=== PATIENT | female | born 1995 | race Caucasian/White ===

== ENCOUNTER 2017-08-25 19:23 | Observation (INO) | payer MEDICAID ==
[~2017-08-25] VITALS: Ht 154.9 cm; Wt 68.0 kg
[2017-08-25 19:28] VITALS: BP 115/58; PULSE 103; RESP 16; TEMP 98.7; O2SAT 99
--- NOTE | 2017-08-25 19:52 | PD ---
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 She says she tested positive for home test and her last menstrual cycle was every 24th of this year. She started bleeding and passing products of conception 3 weeks ago. She says she saw a sac like structure coming out. She has had previous miscarriage and she knew that she was going to another miscarriage. Patient was A0. She is not from the area and just moved from [place] here. She never saw an OB for this or the miscarriage. She is here today because she has been bleeding still vaginally with cramps. Patient says that the last patchy change was soaked with blood and she had put that on 1 hour ago. Patient was slightly tachycardic in triage. She feels little lightheaded she said. She has been feeling some bloating and abdominal rigidity as well. [facility] Past Medical History Narrative Medical List of her past medical, surgical, social and family history is reviewed from the nursing note. ?: Unknown LMP: 05/09/17 Social History Tobacco Use: Yes Allergies-Medications (Allergen,Severity, Reaction): Coded Allergies: Penicillins (Verified Allergy, Severe, HIVES, 08/25/17) amoxicillin (Verified Allergy, Severe, Hives, 08/26/17) Comments List of her allergies reviewed from the nursing note. Reported Meds & Prescriptions Reported Meds & Active Scripts Active No Active Prescriptions or Reported Medications Narrative Medication List of her home medications reviewed from the nursing note Review of Systems Except as stated in HPI: all other systems reviewed are Neg Genitourinary: Positive: Vaginal Bleeding Physical Exam Narrative GENERAL: Awake, alert, moderate distress SKIN: Focused skin assessment warm/dry. HEAD: Atraumatic. Normocephalic. EYES: Pupils equal and round. No scleral icterus. No injection or drainage. ENT: No nasal bleeding or discharge. Mucous membranes pink and moist. NECK: Trachea midline. No JVD. CARDIOVASCULAR: Regular rate and rhythm. No murmur appreciated. RESPIRATORY: No accessory muscle use. Clear to auscultation. Breath sounds equal bilaterally. GASTROINTESTINAL: Abdomen soft, non-tender, nondistended. Hepatic and splenic margins not palpable. Abdominal distention with palpable uterine fundus MUSCULOSKELETAL: No obvious deformities. No clubbing. No cyanosis. No edema. NEUROLOGICAL: Awake and alert. No obvious cranial nerve deficits. Motor grossly within normal limits. Normal speech. PSYCHIATRIC: Appropriate mood and affect; insight and judgment normal. Data Data Last Documented VS Vital Signs Date Time Temp Pulse Resp B/P (MAP) Pulse Ox O2 Delivery O2 Flow Rate FiO2 08/25/17 22:15 08/25/17 21:50 92 16 99 Room Air 08/25/17 19:28 98.7 Orders Orders Beta Hcg (Quant/Titer) (08/25/17 19:52) Complete Blood Count With Diff (08/25/17 19:52) Basic Metabolic Panel (Bmp) (08/25/17 19:52) Type And Screen (08/25/17 19:52) Sodium Chlor 0.9% 1000 Ml Inj (Ns 1000 M (08/25/17 20:00) Prothrombin Time / Inr (Pt) (08/25/17 19:52) Act Partial Throm Time (Ptt) (08/25/17 19:52) Ed Poc Ultrasound (08/25/17 ) Ed Urine Pregnancytest Poc (08/25/17 20:09) Admit Order (Ed Use Only) (08/25/17 20:59) Urinalysis - C+S If Indicated (08/25/17 21:12) Ob/Psych Drug Screen, Urine (08/25/17 21:12) Ob Poc Ultrasound (08/25/17 ) Ob (2e) Additional Admit Info (08/25/17 23:38) Labs Laboratory Tests Test 08/25/17 20:08 08/25/17 21:17 White Blood Count 8.8 TH/MM3 Red Blood Count 3.51 MIL/MM3 Hemoglobin 11.2 GM/DL Hematocrit 33.0 % Mean Corpuscular Volume 94.2 FL Mean Corpuscular Hemoglobin 32.0 PG Mean Corpuscular Hemoglobin Concent 34.0 % Red Cell Distribution Width 11.8 % Platelet Count 281 TH/MM3 Mean Platelet Volume 9.3 FL Neutrophils (%) (Auto) 75.7 % Lymphocytes (%) (Auto) 15.2 % Monocytes (%) (Auto) 5.5 % Eosinophils (%) (Auto) 3.0 % Basophils (%) (Auto) 0.6 % Neutrophils # (Auto) 6.6 TH/MM3 Lymphocytes # (Auto) 1.3 TH/MM3 Monocytes # (Auto) 0.5 TH/MM3 Eosinophils # (Auto) 0.3 TH/MM3 Basophils # (Auto) 0.1 TH/MM3 CBC Comment DIFF FINAL Differential Comment Prothrombin Time 9.9 SEC Prothromb Time International Ratio 1.0 RATIO Activated Partial Thromboplast Time 22.8 SEC Blood Urea Nitrogen 10 MG/DL Creatinine 0.52 MG/DL Random Glucose 92 MG/DL Calcium Level 8.2 MG/DL Sodium Level 139 MEQ/L Potassium Level 3.6 MEQ/L Chloride Level 109 MEQ/L Carbon Dioxide Level 21.1 MEQ/L Anion Gap 9 MEQ/L Estimat Glomerular Filtration Rate 147 ML/MIN Human Chorionic Gonadotropin, Quant 39136 MIU/ML Urine Color YELLOW Urine Turbidity CLEAR Urine pH 5.5 Urine Specific [place] 1.025 Urine Protein NEG mg/dL Urine Glucose (UA) NEG mg/dL Urine Ketones NEG mg/dL Urine Occult Blood LARGE Urine Nitrite NEG Urine Bilirubin NEG Urine Urobilinogen 0.2 MG/DL Urine Leukocyte Esterase NEG Urine RBC 15-19 /hpf Urine WBC 0-2 /hpf Urine Squamous Epithelial Cells 0-5 /hpf Urine Bacteria OCC /hpf Microscopic Urinalysis Comment CULT NOT INDICATED Urine Opiates Screen NEG Urine Barbiturates Screen NEG Urine Amphetamines Screen NEG Urine Benzodiazepines Screen NEG Urine Cocaine Screen NEG Urine Cannabinoids Screen POS MDM Medical Decision Making Medical Screen Exam Complete: Yes Emergency Medical Condition: Yes Medical Record Reviewed: Yes Differential Diagnosis Incomplete , Narrative Course 8:35 PM bedside ultrasound was performed by me. Please refer to my procedure note. Based on the bedside ultrasound patient is 17 weeks and 1 days and based on the LMP it is 15 weeks and 4 days. Awaiting for the type and screen. Blood test results are back and within acceptable limits. Beta hCG is still pending. I will discuss the case with the OB hospitalist once I have the type and screen back. 9 PM I did a pelvic exam that showed the os to be parous but closed. There was fresh blood in the vaginal vault which was dabbed with long sponge x 2 after which constant trickling of blood from the cervical os was noticed. I discussed the case with Dr. Wallace who is on for OB hospitalist and the decision was to transfer her to the main hospital under his care for admission and observation. A formal ultrasound could not be done in the emergency room since patient is more than 12 weeks gestation. At this point further ultrasound would be deferred to OB. Procedures Procedure Narrative Emergency Department Pelvic ultrasound was performed with patient consent. The curvilinear probe was used in the transverse and sagittal views within the suprapubic region revealing single, live intrauterine . heart rate was 141 bpm. See this measures 17 weeks and 1 day by biparietal diameter. EKG Prior to Arrival: No Physician Communication Physician Communication Dr. Wallace Diagnosis Primary Impression: Second trimester Additional Impression: Vaginal bleeding before 22 weeks gestation Admitting Information Admitting Physician Requests: Admit Scripts No Active Prescriptions or Reported Meds Jonnie Antonio MD Aug 25, 2017 19:52
[2017-08-25] MEDS ORDERED: SODIUM CHLOR 0.9% 1000 ML INJ 1,000 ML IV ONE (20:00)
[2017-08-25 20:15] LABS: AUTOMATED NEUTROPHIL # 6.6 TH/MM3 (1.8-7.7); BASOPHIL # 0.1 TH/MM3 (0-0.2); BASOPHIL % 0.6 % (0.0-2.0); EOSINOPHIL # 0.3 TH/MM3 (0-0.4); HEMOGLOBIN 11.2 GM/DL (11.6-15.3); LYMPH % 15.2 % (9.0-44.0); LYMPHOCYTE # 1.3 TH/MM3 (1.0-4.8); MEAN CELL VOLUME 94.2 FL (80.0-100.0); MEAN PLATELET VOLUME 9.3 FL (7.0-11.0); MONO % 5.5 % (0.0-8.0); MONOCYTE # 0.5 TH/MM3 (0-0.9); NEUT % 75.7 % (16.0-70.0); PLATELET COUNT 281 TH/MM3 (150-450); RED BLOOD COUNT 3.51 MIL/MM3 (4.00-5.30); RED CELL DISTRIBUTION WIDTH 11.8 % (11.6-17.2); WHITE BLOOD COUNT 8.8 TH/MM3 (4.0-11.0)
[2017-08-25 20:27] LABS: BICARBONATE 21.1 MEQ/L (21.0-32.0); CALCIUM 8.2 MG/DL (8.5-10.1)
[2017-08-25 20:30] LABS: PROTHROMBIN TIME - PATIENT 9.9 SEC (9.8-11.6)
[2017-08-25 20:31] LABS: CREATININE 0.52 MG/DL (0.50-1.00)
[2017-08-25 21:22] LABS: BILIRUBIN, URINE NEG (NEG); BLOOD, URINE LARGE (NEG); GLUCOSE,URINE NEG (NEG); KETONE, URINE NEG (NEG); NITRITE,URINE NEG (NEG); PH, URINE 5.5 (5.0-8.5); URINE COLOR YELLOW (YELLW/STRAW); URINE LEUKOCYTE ESTERASE NEG (NEG)
[2017-08-25 21:27] LABS: BACTERIA, URINE OCC /hpf; RBC, URINE 15-19 /hpf (0-3); SQUAMOUS EPITHELIAL CELL URINE 0-5 /hpf (0-5); WBC, URINE 0-2 /hpf (0-5)
[2017-08-25 21:50] VITALS: BP 90/49; PULSE 92; RESP 16; O2SAT 99
[2017-08-25] MEDS ORDERED: ACETAMINOPHEN 325 MG TAB PO PRN (23:45)
[2017-08-25] MEDS ORDERED: SODIUM CHLORIDE 0.9% FLUSH 10 ML FLUSH IV FLUSH PRN (23:45)
[2017-08-25] MEDS ORDERED: ALUMINUM/MAGNESIUM/SIMETH 30 ML CUP PO PRN (23:45)
--- NOTE | 2017-08-25 23:53 | HHI.HP ---
HPI Chief Complaint Vaginal bleeding abdominal pain Date Seen: Aug 25, 2017 Time Seen: 23:43 Travel History International Travel<30 Days: No Contact w/Intl Traveler<30Days: No Known Affected Area: No History of Present Illness HPI 21-year-old black female A1 approximately 16 weeks by ultrasound danae who has no care and referred from [place] [facility] for bleeding in the second trimester, patient more than a week ago thought she just miscarried started bleeding is been bleeding ever since she went to the [place] [facility] because this began hurting as well and the input R they did a quick ultrasound that showed a fetus with heartbeat. They felt she needed to come here for evaluation she was sent to OB ED [place]. Here on OB ED bedside ultrasound done shows a 16 week 2 day single intrauterine with positive cardiac motion normal amniotic fluid anterior placenta grade 0 that shows in the lower uterine segment and right above the cervix a fairly large formed blood clot that is underneath a tail of placenta so would classified as a retroplacental clot/abruption/threatened spontaneous Weeks Gestation: 16 Para: 1 : 3 Last Menstrual Period: Aug 25, 2017 Miscarriage: 1 History Obstetric History Obstetric History 1 vaginal delivery 1 early loss Social History Alcohol Use: No Tobacco Use: Yes Substance Abuse: No Allergies-Medications (Allergen,Severity, Reaction): Coded Allergies: Penicillins (Verified Allergy, Severe, HIVES, 08/25/17) Home Meds No Active Prescriptions or Reported Meds Review of Systems General / Constitutional: No: Fever, Weight Gain, Chills, Other Eyes: No: Diploplia, Blurred Vision, Visual changes, Pain, Photophobia HENT: No: Headaches, Vertigo, Lightheadedness Cardiovascular: No: Irregular Rhythm, Chest Pain or Discomfort, Palpitations, Tachycardia, Syncope, Varicosities, Edema, Cyanosis Respiratory: No: Cough, Short of Breath, Other Gastrointestinal: Abdominal Pain, No: Nausea, Vomiting, Diarrhea Genitourinary: Vaginal Bleeding, No: Decreased Urinary Output, Oliguria Musculoskeletal: No: Limited ROM, Weakness, Cramping, Edema, Pain Skin: No Rash, No Itching, No Dryness, No Lumps, No Change in Pigmentation, No Change in Nails, No Alopecia, No Lesions Neurologic: No: Weakness, Dizziness, Syncope, Focal Abnormalities, Coordination Problem, Headache, Slurred Speech, Seizures Psychiatric: No: Depression, Suicidal Ideations, Homicidal Ideation Endocrine: No: Heat Intolerance, Cold Intolerance, Polydipsia, Polyuria, Other Physical Exam Vital Signs Date Time Temp Pulse Resp B/P (MAP) Pulse Ox O2 Delivery O2 Flow Rate FiO2 08/25/17 22:15 08/25/17 21:50 92 16 90/49 (63) 99 Room Air 08/25/17 19:28 98.7 103 16 115/58 (77) 99 Narrative GENERAL: Well-nourished, well-developed patient. SKIN: Warm and dry. HEAD: Normocephalic and atraumatic. EYES: No scleral icterus. No injection or drainage. ENT: No nasal drainage noted. Mucous membranes pink. Airway patent. NECK: Supple, trachea midline. No JVD. CARDIOVASCULAR: Regular rate and rhythm without murmurs, gallops, or rubs. RESPIRATORY: Breath sounds equal bilaterally. No accessory muscle use. BREASTS: Bilateral exam showed no masses , no retractions, no nipple discharge. ABDOMEN/GI: Abdomen soft, -tender, bowel sounds present, no rebound, no guarding Gravid to [16-] weeks size Fundal Height: [16-] GENITOURINARY: External Genitalia: intact and normal in appearance Speculum exam--small amount of dark blood in the vagina no active bleeding or red vaginal bleeding, blood seems to be oozing slowly from the cervix Uterus is approximately 17 weeks size by palpation with no adnexal masses is 1-2+ tender Cervix: [Posterior-] Dilatation: [-Closed at the internal os fingertip the external os] Effacement: [-Thick] Station: [-High] Membranes: [intact ] FHT's: 143 EXTREMITIES: No cyanosis or edema. BACK: Nontender without obvious deformity. No CVA tenderness. NEUROLOGICAL: Awake and alert. Motor and sensory grossly within normal limits. Five out of 5 muscle strength in all muscle groups. Normal speech. Caprini VTE Risk Assessment Caprini VTE Risk Assessment: No/Low Risk (score <= 1) Caprini Risk Assessment Model Point Value = 1 Point Value = 2 Point Value = 3 Point Value = 5 Age 41-60 Minor surgery BMI > 25 kg/m2 Swollen legs Varicose veins or History of unexplained or recurrent spontaneous Oral contraceptives or hormone replacement Sepsis (< 1 month) Serious lung disease, including pneumonia (< 1 month) Abnormal pulmonary function Acute myocardial infarction Congestive heart failure (< 1 month) History of inflammatory bowel disease Medical patient at bed rest Age 61-74 Arthroscopic surgery Major open surgery (> 45 min) Laparoscopic surgery (> 45 min) Malignancy Confined to bed (> 72 hours) Immobilizing plaster cast Central venous access Age >= 75 History of VTE Family history of VTE Factor V Leiden Prothrombin [id number] Lupus anticoagulant Anticardiolipin antibodies Elevated serum homocysteine Heparin-induced thrombocytopenia Other congenital or acquired thrombophilia Stroke (< 1 month) Elective arthroplasty Hip, pelvis, or leg fracture Acute spinal cord injury (< 1 month) Prophylaxis Regimen Total Risk Factor Score Risk Level Prophylaxis Regimen 0-1 Low Early ambulation 2 Moderate Order ONE of the following: *Sequential Compression Device (SCD) *Heparin 5000 units SQ BID 3-4 Higher Order ONE of the following medications: *Heparin 5000 units SQ TID *Enoxaparin/Lovenox 40 mg SQ daily (WT < 150 kg, CrCl > 30 mL/min) *Enoxaparin/Lovenox 30 mg SQ daily (WT < 150 kg, CrCl > 10-29 mL/min) *Enoxaparin/Lovenox 30 mg SQ BID (WT < 150 kg, CrCl > 30 mL/min) AND/OR *Sequential Compression Device (SCD) 5 or more Highest Order ONE of the following medications: *Heparin 5000 units SQ TID (Preferred with Epidurals) *Enoxaparin/Lovenox 40 mg SQ daily (WT < 150 kg, CrCl > 30 mL/min) *Enoxaparin/Lovenox 30 mg SQ daily (WT < 150 kg, CrCl > 10-29 mL/min) *Enoxaparin/Lovenox 30 mg SQ BID (WT < 150 kg, CrCl > 30 mL/min) AND *Sequential Compression Device (SCD) Data Data Orders Orders Beta Hcg (Quant/Titer) (08/25/17 19:52) Complete Blood Count With Diff (08/25/17 19:52) Basic Metabolic Panel (Bmp) (08/25/17 19:52) Type And Screen (08/25/17 19:52) Sodium Chlor 0.9% 1000 Ml Inj (Ns 1000 M (08/25/17 20:00) Prothrombin Time / Inr (Pt) (08/25/17 19:52) Act Partial Throm Time (Ptt) (08/25/17 19:52) Ed Poc Ultrasound (08/25/17 ) Ed Urine Pregnancytest Poc (08/25/17 20:09) Admit Order (Ed Use Only) (08/25/17 20:59) Urinalysis - C+S If Indicated (08/25/17 21:12) Ob/Psych Drug Screen, Urine (08/25/17 21:12) Ob Poc Ultrasound (08/25/17 ) Ob (2e) Additional Admit Info (08/25/17 23:38) Place In Observation (08/25/17 ) Diet Npo (08/26/17 Breakfast) Vital Signs (Adult) [id number] AWAKE (08/25/17 23:36) Heart CASTRO.QSHIFT (08/25/17 23:36) Activity Bed Rest With Brp (08/25/17 23:36) Acetaminophen (Tylenol) (08/25/17 23:45) [id number]-Iron Prenat (Stuartna (08/26/17 09:00) Docusate Sodium (Colace) (08/26/17 09:00) Al-Mag Hy-Si 40-40-4 Mg/Ml Liq (Mag-Al P (08/25/17 23:45) Sodium Chloride 0.9% Flush (Ns Flush) (08/26/17 09:00) Sodium Chloride 0.9% Flush (Ns Flush) (08/25/17 23:45) Ondansetron Odt (Zofran Odt) (08/25/17 23:45) Hold Clot (08/25/17 23:36) Consult Perinatology (08/25/17 ) Ferrous Sulfate (Ferrous Sulfate) (08/26/17 09:00) Lactated Ringer's 1000 Ml Inj (Lr 1000 M (08/25/17 23:36) Hiv Antibody Screen (08/25/17 23:36) Fentanyl Inj (Fentanyl Inj) (08/25/17 23:45) Labs Bedside ultrasound--single intrauterine 16 weeks 2 day size, positive cardiac motion and normal anatomy scan, normal amniotic fluid volume, baby in a transverse position, is an anterior grade 0 placenta that wraps around into the lower uterine segment and the end of this placenta seems to have been unroofed off of the lower uterine segment and cervix by large blood clot that is visible on ultrasound that is basically covering the internal os and is lying underneath the end of the placenta Laboratory Tests Test 08/25/17 20:08 08/25/17 21:17 White Blood Count 8.8 Red Blood Count 3.51 Hemoglobin 11.2 Hematocrit 33.0 Mean Corpuscular Volume 94.2 Mean Corpuscular Hemoglobin 32.0 Mean Corpuscular Hemoglobin Concent 34.0 Red Cell Distribution Width 11.8 Platelet Count 281 Mean Platelet Volume 9.3 Neutrophils (%) (Auto) 75.7 Lymphocytes (%) (Auto) 15.2 Monocytes (%) (Auto) 5.5 Eosinophils (%) (Auto) 3.0 Basophils (%) (Auto) 0.6 Neutrophils # (Auto) 6.6 Lymphocytes # (Auto) 1.3 Monocytes # (Auto) 0.5 Eosinophils # (Auto) 0.3 Basophils # (Auto) 0.1 CBC Comment DIFF FINAL Differential Comment Prothrombin Time 9.9 Prothromb Time International Ratio 1.0 Activated Partial Thromboplast Time 22.8 Blood Urea Nitrogen 10 Creatinine 0.52 Random Glucose 92 Calcium Level 8.2 Sodium Level 139 Potassium Level 3.6 Chloride Level 109 Carbon Dioxide Level 21.1 Anion Gap 9 Estimat Glomerular Filtration Rate 147 Human Chorionic Gonadotropin, Quant 37288 Urine Color YELLOW Urine Turbidity CLEAR Urine pH 5.5 Urine Specific [place] 1.025 Urine Protein NEG Urine Glucose (UA) NEG Urine Ketones NEG Urine Occult Blood LARGE Urine Nitrite NEG Urine Bilirubin NEG Urine Urobilinogen 0.2 Urine Leukocyte Esterase NEG Urine RBC 15-19 Urine WBC 0-2 Urine Squamous Epithelial Cells 0-5 Urine Bacteria OCC Microscopic Urinalysis Comment CULT NOT INDICATED Urine Opiates Screen NEG Urine Barbiturates Screen NEG Urine Amphetamines Screen NEG Urine Benzodiazepines Screen NEG Urine Cocaine Screen NEG Urine Cannabinoids Screen POS Assessment/Plan Assessment and Plan Impression--16 week intrauterine with second trimester hemorrhage pain related to a retroplacental clot/abruption seen on ultrasound, this would also qualify as a threatened spontaneous Plan-admit to antepartum service, check laboratory ,abruption lab, keep at bedrest watch to see if there is no obvious stabilization of the bleeding and the clot formation and I explained to the patient if it worsens in the placenta was further lifted off the lower uterine segment then it would quite likely miscarry this . If there is stabilization of bleeding and no further clot formation then this is possible that the clot may resolve and absorb on its own and could continue Oscar Wallace II, MD Aug 25, 2017 23:53
[2017-08-26] VITALS (11 sets, daily range): BP systolic 90–132; BP diastolic 43–92; PULSE 71–107; RESP 6–18; TEMP 97.7–98.1
[2017-08-26] MEDS: LACTATED RINGER'S 1000 ML INJ 1,000 ML IV SCH ×4 (00:18→23:36)
[2017-08-26 00:58] LABS: PROTHROMBIN TIME - PATIENT 9.8 SEC (9.8-11.6)
--- NOTE | 2017-08-26 08:28 | PD.OB.ANTE ---
Subjective Interval History Patient is a 21-year-old A1 at 16 weeks gestation presented with vaginal bleeding and abdominal pain. Ultrasound showed retroplacental clot versus abruption. Overnight patient changed 1 pad that was "full". She continues to have constant abdominal cramping that is unchanged from admission. Otherwise no gush of fluid. Objective Vital Signs Vital Signs Date Time Temp Pulse Resp B/P (MAP) Pulse Ox O2 Delivery O2 Flow Rate FiO2 08/25/17 22:15 08/25/17 21:50 92 16 90/49 (63) 99 Room Air 08/25/17 19:28 98.7 103 16 115/58 (77) 99 Intake & Output 08/26/17 08/26/17 07:00 19:00 Intake Total 1000 ml Balance 1000 ml Intake IV Total 1000 ml # Sanitary Pads 1 Pads Lab & Micro Results Test 08/25/17 20:08 08/25/17 21:17 08/25/17 23:50 08/26/17 00:37 White Blood Count 8.8 TH/MM3 Red Blood Count 3.51 MIL/MM3 Hemoglobin 11.2 GM/DL Hematocrit 33.0 % Mean Corpuscular Volume 94.2 FL Mean Corpuscular Hemoglobin 32.0 PG Mean Corpuscular Hemoglobin Concent 34.0 % Red Cell Distribution Width 11.8 % Platelet Count 281 TH/MM3 Mean Platelet Volume 9.3 FL Neutrophils (%) (Auto) 75.7 % Lymphocytes (%) (Auto) 15.2 % Monocytes (%) (Auto) 5.5 % Eosinophils (%) (Auto) 3.0 % Basophils (%) (Auto) 0.6 % Neutrophils # (Auto) 6.6 TH/MM3 Lymphocytes # (Auto) 1.3 TH/MM3 Monocytes # (Auto) 0.5 TH/MM3 Eosinophils # (Auto) 0.3 TH/MM3 Basophils # (Auto) 0.1 TH/MM3 CBC Comment DIFF FINAL Differential Comment Prothrombin Time 9.9 SEC 9.8 SEC Prothromb Time International Ratio 1.0 RATIO 1.0 RATIO Activated Partial Thromboplast Time 22.8 SEC 24.4 SEC Blood Urea Nitrogen 10 MG/DL Creatinine 0.52 MG/DL Random Glucose 92 MG/DL Calcium Level 8.2 MG/DL Sodium Level 139 MEQ/L Potassium Level 3.6 MEQ/L Chloride Level 109 MEQ/L Carbon Dioxide Level 21.1 MEQ/L Anion Gap 9 MEQ/L Estimat Glomerular Filtration Rate 147 ML/MIN Human Chorionic Gonadotropin, Quant 66367 MIU/ML Urine Color YELLOW Urine Turbidity CLEAR Urine pH 5.5 Urine Specific [place] 1.025 Urine Protein NEG mg/dL Urine Glucose (UA) NEG mg/dL Urine Ketones NEG mg/dL Urine Occult Blood LARGE Urine Nitrite NEG Urine Bilirubin NEG Urine Urobilinogen 0.2 MG/DL Urine Leukocyte Esterase NEG Urine RBC 15-19 /hpf Urine WBC 0-2 /hpf Urine Squamous Epithelial Cells 0-5 /hpf Urine Bacteria OCC /hpf Microscopic Urinalysis Comment CULT NOT INDICATED Urine Opiates Screen NEG Urine Barbiturates Screen NEG Urine Amphetamines Screen NEG Urine Benzodiazepines Screen NEG Urine Cocaine Screen NEG Urine Cannabinoids Screen POS HIV (1&2) Ab and P24 Ag, 4th Gener NONREACTIVE Physical Exam GENERAL: Well-nourished, well-developed patient. CARDIOVASCULAR: Regular rate and rhythm without murmurs, gallops, or rubs. RESPIRATORY: Breath sounds equal bilaterally. No accessory muscle use. ABDOMEN/GI: Abdomen soft, non-tender. Fundus: Consistent with 16 weeks gestation EXTREMITIES: No cyanosis or edema, non-tender, without signs of DVT. Assessment and Plan Assessment and Plan Impression--16 week intrauterine with second trimester hemorrhage pain related to a retroplacental clot/abruption seen on ultrasound, this would also qualify as a threatened spontaneous . H&H at 11.2/33.0 on admission Plan admitted to antepartum service overnight and watched for stabilization of bleeding and clot formation. Patient understands that if bleeding in the placenta is further lifted off the lower uterine segment that it could possibly lead to miscarried . Stabilization and the bleeding with no further clot formation within the clot may resolve/absorb in could continue. Plan for ultrasound this morning and MFM consult. Daniel Stauffer MD R1 Aug 26, 2017 08:28
[2017-08-26] MEDS: DOCUSATE SODIUM 100 MG CAP PO SCH (08:52)
[2017-08-26] MEDS: MULTIVIT/MIN/PREN/FOL AC/IRON PRENATAL TAB PO SCH (08:52)
[2017-08-26] MEDS: FERROUS SULFATE 325 MG (65 MG ELEMENTAL IRON) TAB PO SCH ×2 (08:53→21:21)
[2017-08-26] MEDS: SODIUM CHLORIDE 0.9% FLUSH 10 ML FLUSH IV FLUSH SCH ×2 (09:00→21:00)
[2017-08-26] MEDS: oxyCODONE/ACETAMINOPHEN 5 MG/325 MG TAB PO PRN ×2 (16:06→21:21)
[2017-08-26] MEDS ORDERED: SIMETHICONE 125 MG CHEWABLE TAB PO PRN (16:15)
[2017-08-26 17:13] LABS: BASOPHIL # 0.1 TH/MM3 (0-0.2); BASOPHIL % 0.6 % (0.0-2.0); EOSINOPHIL # 0.2 TH/MM3 (0-0.4); EOSINOPHIL % 2.4 % (0.0-4.0); HEMATOCRIT 31.3 % (35.0-46.0); HEMOGLOBIN 11.3 GM/DL (11.6-15.3); LYMPH % 14.5 % (9.0-44.0); LYMPHOCYTE # 1.3 TH/MM3 (1.0-4.8); MEAN CELL VOLUME 91.5 FL (80.0-100.0); MONO % 6.2 % (0.0-8.0); MONOCYTE # 0.6 TH/MM3 (0-0.9); NEUT % 76.3 % (16.0-70.0); PLATELET COUNT 253 TH/MM3 (150-450); RED BLOOD COUNT 3.42 MIL/MM3 (4.00-5.30); RED CELL DISTRIBUTION WIDTH 12.6 % (11.6-17.2); WHITE BLOOD COUNT 9.2 TH/MM3 (4.0-11.0)
[2017-08-26 17:17] LABS: MEAN CORPUSCULAR HGB CONC 36.1 % (32.0-36.0)
[2017-08-26] MEDS: ONDANSETRON ODT 4 MG TAB PO PRN (21:55)
[2017-08-27] VITALS (16 sets, daily range): BP systolic 85–118; BP diastolic 39–63; PULSE 62–82; RESP 16–19; TEMP 98–98.4
[2017-08-27] MEDS: oxyCODONE/ACETAMINOPHEN 5 MG/325 MG TAB PO PRN ×2 (05:32→13:14)
[2017-08-27] MEDS: LACTATED RINGER'S 1000 ML INJ 1,000 ML IV SCH ×3 (08:01→23:36)
[2017-08-27] MEDS: FERROUS SULFATE 325 MG (65 MG ELEMENTAL IRON) TAB PO SCH ×2 (08:23→21:00)
--- NOTE | 2017-08-27 08:46 | PD.OB.ANTE ---
Subjective Interval History Overnight patient states that her bleeding increase from occasional spotting to a more consistent flow. States she did not soak through multiple pads. She also continues to feel pelvic pressure/lower abdominal pain that continues to be a continual cramp-like sensation. She also endorses a headache since admission. She states she has not passed gas or had a bowel movement since admission. Objective Vital Signs Vital Signs Date Time Temp Pulse Resp B/P (MAP) Pulse Ox O2 Delivery O2 Flow Rate FiO2 08/27/17 07:36 17 08/27/17 05:28 98.0 08/27/17 05:28 18 08/27/17 05:18 69 95/48 (64) 08/27/17 05:14 68 86/39 (55) 08/27/17 05:13 71 85/43 (57) 08/27/17 00:13 18 08/27/17 00:06 98.1 18 08/27/17 00:04 62 96/47 (63) 08/26/17 21:15 71 96/48 (64) 08/26/17 19:45 71 94/46 (62) 08/26/17 19:25 98.0 107 18 132/92 (105) 08/26/17 16:00 6 08/26/17 16:00 16 08/26/17 15:48 97.7 08/26/17 15:34 77 94/43 (60) 08/26/17 12:29 71 90/46 (61) 08/26/17 12:28 98.1 08/26/17 08:42 16 08/26/17 08:41 74 91/45 (60) Lab & Micro Results Test 08/26/17 16:58 White Blood Count 9.2 TH/MM3 Red Blood Count 3.42 MIL/MM3 Hemoglobin 11.3 GM/DL Hematocrit 31.3 % Mean Corpuscular Volume 91.5 FL Mean Corpuscular Hemoglobin 33.0 PG Mean Corpuscular Hemoglobin Concent 36.1 % Red Cell Distribution Width 12.6 % Platelet Count 253 TH/MM3 Mean Platelet Volume 9.0 FL Neutrophils (%) (Auto) 76.3 % Lymphocytes (%) (Auto) 14.5 % Monocytes (%) (Auto) 6.2 % Eosinophils (%) (Auto) 2.4 % Basophils (%) (Auto) 0.6 % Neutrophils # (Auto) 7.0 TH/MM3 Lymphocytes # (Auto) 1.3 TH/MM3 Monocytes # (Auto) 0.6 TH/MM3 Eosinophils # (Auto) 0.2 TH/MM3 Basophils # (Auto) 0.1 TH/MM3 CBC Comment DIFF FINAL Differential Comment Physical Exam GENERAL: Well-nourished, well-developed patient in discomfort. CARDIOVASCULAR: Regular rate and rhythm without murmurs, gallops, or rubs. RESPIRATORY: Breath sounds equal bilaterally. No accessory muscle use. ABDOMEN/GI: Abdomen soft, non-tender, nondistended with hyperactive bowel sounds. Fundus: 16 EXTREMITIES: No cyanosis or edema, non-tender, without signs of DVT. Assessment and Plan Assessment and Plan Impression--16 week intrauterine with second trimester hemorrhage pain related to a retroplacental clot/abruption seen on ultrasound, this would also qualify as a threatened spontaneous . H&H stable with a hemoglobin of 11 x2. Admitted to antepartum service and watched for stabilization of bleeding and clot formation. Patient understands that if bleeding in the placenta is further lifted off the lower uterine segment that it could possibly lead to miscarried . Stabilization and the bleeding with no further clot formation within the clot may resolve/absorb in could continue. -MFM saw patient on 08/26, recommendations are to continue monitoring -Repeat ultrasound on 08/26 showed no significant changes to the retroplacental clot. Heartbeat the fetus still visualized -On 08/27 patient reporting increased bleeding, repeating ultrasound this morning -Repeating CBC as bleeding has increased -Fioricet every 8 hours as needed for headache Daniel Stauffer MD R1 Aug 27, 2017 08:46
[2017-08-27] MEDS: SODIUM CHLORIDE 0.9% FLUSH 10 ML FLUSH IV FLUSH SCH ×2 (09:00→21:00)
[2017-08-27] MEDS: MULTIVIT/MIN/PREN/FOL AC/IRON PRENATAL TAB PO SCH (09:00)
[2017-08-27] MEDS: DOCUSATE SODIUM 100 MG CAP PO SCH (10:09)
[2017-08-27] MEDS: ACETAMIN 325 MG/BUTALBITAL 50 MG/CAFFEINE 40 MG TAB PO PRN ×2 (10:10→18:41)
[2017-08-27 10:38] LABS: HEMATOCRIT 32.4 % (35.0-46.0); HEMOGLOBIN 11.3 GM/DL (11.6-15.3); MEAN CELL VOLUME 92.3 FL (80.0-100.0); MEAN CORPUSCULAR HEMOGLOBIN 32.2 PG (27.0-34.0); MEAN CORPUSCULAR HGB CONC 34.9 % (32.0-36.0); MEAN PLATELET VOLUME 9.1 FL (7.0-11.0); PLATELET COUNT 259 TH/MM3 (150-450); RED BLOOD COUNT 3.51 MIL/MM3 (4.00-5.30); RED CELL DISTRIBUTION WIDTH 12.5 % (11.6-17.2); WHITE BLOOD COUNT 7.1 TH/MM3 (4.0-11.0)
[2017-08-27] MEDS: ONDANSETRON ODT 4 MG TAB PO PRN (13:14)
[2017-08-28] VITALS (9 sets, daily range): BP systolic 89–93; BP diastolic 37–53; PULSE 70–150; RESP 16–18; TEMP 98.2–98.5
[2017-08-28] MEDS: ACETAMIN 325 MG/BUTALBITAL 50 MG/CAFFEINE 40 MG TAB PO PRN (01:44)
[2017-08-28] MEDS: LACTATED RINGER'S 1000 ML INJ 1,000 ML IV SCH (07:36)
--- NOTE | 2017-08-28 08:27 | PD.OB.ANTE ---
Subjective Interval History Patient complains of headache and abdominal pain but has been having pain since she has been in the hospital. The headache and abdominal pain are well controlled with Percocet. She is tired of being in the hospital and would like to go home today. Antepartum ROS: Denies: New complaints Objective Vital Signs Vital Signs Date Time Temp Pulse Resp B/P (MAP) Pulse Ox O2 Delivery O2 Flow Rate FiO2 08/28/17 08:20 18 08/28/17 08:20 98.2 08/28/17 08:14 70 89/50 (63) 08/28/17 08:11 150 93/53 (66) 08/28/17 04:00 18 08/28/17 01:36 18 08/28/17 01:36 98.5 08/28/17 01:31 72 93/37 (55) 08/28/17 00:44 16 08/27/17 23:08 18 08/27/17 22:50 16 08/27/17 21:16 18 08/27/17 21:00 18 08/27/17 20:56 99/40 (59) 08/27/17 20:56 64 08/27/17 20:21 98.4 08/27/17 19:00 18 08/27/17 15:55 17 08/27/17 13:16 70 99/51 (67) 08/27/17 09:37 19 08/27/17 09:16 82 118/63 (81) Lab & Micro Results Test 08/27/17 10:25 White Blood Count 7.1 TH/MM3 Red Blood Count 3.51 MIL/MM3 Hemoglobin 11.3 GM/DL Hematocrit 32.4 % Mean Corpuscular Volume 92.3 FL Mean Corpuscular Hemoglobin 32.2 PG Mean Corpuscular Hemoglobin Concent 34.9 % Red Cell Distribution Width 12.5 % Platelet Count 259 TH/MM3 Mean Platelet Volume 9.1 FL Physical Exam GENERAL: Well-nourished, well-developed patient. CARDIOVASCULAR: Regular rate and rhythm without murmurs, gallops, or rubs. RESPIRATORY: Breath sounds equal bilaterally. No accessory muscle use. ABDOMEN/GI: Abdomen soft, non-tender. Fundus: gravid GENITOURINARY: External Genitalia: intact and normal in appearance FHT's: 142 overnight EXTREMITIES: No cyanosis or edema, non-tender, without signs of DVT. Assessment and Plan Assessment and Plan Impression--16 week intrauterine with second trimester hemorrhage pain related to a retroplacental clot/abruption seen on ultrasound, this would also qualify as a threatened spontaneous . H&H stable with a hemoglobin of 11 x 3. Admitted to antepartum service and watched for stabilization of bleeding and clot formation. Patient understands that if bleeding in the placenta is further lifted off the lower uterine segment, it could possibly lead to miscarried . Stabilization of the bleeding with no further clot formation within the clot may resolve/absorb in could continue. -MFM saw patient on 08/26, recommendations are to continue monitoring -Repeat ultrasound on 08/26 showed no significant changes to the retroplacental clot. Heartbeat still visualized on the fetus -On 08/27 patient reporting increased bleeding, ultrasound was repeated * US showed a subchorionic hematoma located directly over the internal os measuring 7.1 x 3.2 x 5.9 cm, slightly smaller than on 07/26 -Fioricet every 8 hours as needed for headache -Percocet every 4 hours as needed for pain -Milk of Magnesia prn constipation Discussed with Dr. Aaliyah Rodriges,Azalia PATTERSNO R2 Aug 28, 2017 08:27
[2017-08-28] MEDS ORDERED: MAGNESIUM HYDROXIDE SUSP 30 ML CUP PO PRN (08:30)
[2017-08-28] MEDS: SODIUM CHLORIDE 0.9% FLUSH 10 ML FLUSH IV FLUSH SCH (08:53)
[2017-08-28] MEDS: MULTIVIT/MIN/PREN/FOL AC/IRON PRENATAL TAB PO SCH (08:54)
[2017-08-28] MEDS: FERROUS SULFATE 325 MG (65 MG ELEMENTAL IRON) TAB PO SCH (08:54)
[2017-08-28] MEDS: DOCUSATE SODIUM 100 MG CAP PO SCH (08:54)
[2017-08-28] MEDS ORDERED: COLA100C5 PO (13:20)
[2017-08-28] MEDS ORDERED: FERR325T20 PO (13:20)
[2017-08-28] MEDS ORDERED: NON-500T10 PO (13:20)
--- NOTE | 2017-08-28 13:20 | HHI.DCPOC ---
Discharge Care Plan Diagnosis: (1) Placenta previa (2) Second trimester (3) Vaginal bleeding before 22 weeks gestation Report Symptoms to Your Doctor -Temperature above 100.5 degrees -Redness, of incision or excessive or foul smelling drainage -Unusual pain or calf pain -Increased vaginal bleeding -Painful or difficulty urinating -Feelings of extreme sadness or anxiety after 2 weeks Goals to Promote Your Health * To prevent worsening of your condition and complications * To maintain your health at the optimal level Directions to Meet Your Goals Take your medications as prescribed Follow your dietary instruction Follow activity as directed Ensure plenty of rest for recovery Drink fluids for hydration Keep your appointments as scheduled Take your immunizations and boosters as scheduled If your symptoms worsen call your PCP, if no PCP go to Urgent Care Center or Emergency Room Smoking is Dangerous to Your Health. Avoid second hand smoke Call the 24-hour crisis hotline for domestic abuse at Daniel Stauffer MD R1 Aug 28, 2017 13:20
[2017-08-28] MEDS: oxyCODONE/ACETAMINOPHEN 5 MG/325 MG TAB PO PRN (14:10)
[2017-08-29] MEDS ORDERED: PEDI1TAB7 PO (20:23)
== END 2017-08-28 15:03 | disposition home or self-care (01) ==
LOC: PHED 19:23 → UNDOADMIN 21:01 → PHEDA 21:01 → H2EA 23:39
PROVIDERS: ADMIT Obstetrics & Gynecology Maternal & Fetal Medicine; ATTEND Obstetrics & Gynecology Maternal & Fetal Medicine
DX: O20.0 Threatened abortion (principal); O20.8 Other hemorrhage in early pregnancy; O45.92 Premature separation of placenta, unspecified, second trimester; Z3A.16 16 weeks gestation of pregnancy; R51 Headache; R10.9 Unspecified abdominal pain; R00.0 Tachycardia, unspecified; R42 Dizziness and giddiness; R14.0 Abdominal distension (gaseous); F17.210 Nicotine dependence, cigarettes, uncomplicated; F12.90 Cannabis use, unspecified, uncomplicated; Z79.899 Other long term (current) drug therapy
CPT/HCPCS: 36415; 76805; 76815; 80048; 80307; 81001; 84702; 84703; 85025; 85027; 85610; 85730; 86850; 86900; 86901; 87389; 96361; 96374; 96376; 99285; G0378; G0481; J3010; J7030; J7120; G0475

== ENCOUNTER 2017-08-29 19:21 | Inpatient (IN) | payer MEDICAID ==
[~2017-08-29] VITALS: Ht 154.9 cm; Wt 65.7 kg
[~2017-08-29 19:21] MED LIST: COLA100C5 PO; FERR325T20 PO; NON-500T10 PO
--- NOTE | 2017-08-29 19:58 | PD ---
HPI Chief Complaint Vaginal bleeding Travel History International Travel<30 Days: No Contact w/Intl Traveler<30Days: No Known Affected Area: No History of Present Illness HPI 21-year-old , IUP at 16.6 care complicated by complete placenta previa with vaginal bleeding and recent admission/discharge, recovering addict The patient presents reporting she was discharged yesterday. She reports she has been bleeding since she was discharged yesterday. She reports her bleeding increased this morning and she reports she was saturating pads over the period of hours, not every hour. She reports that she has been passing some clots. She reports that her bleeding has decreased since she decided to come to the hospital. She denies any recent intercourse. She reports she has been on bed rest with bathroom privileges. She reports she is having some cramping. She denies any leaking of fluid. She does not yet feel movements. She reports that she has a headache but no other complaints at this time. 08/25: Admitted to antepartum service and watched for stabilization of bleeding and clot formation at 16 weeks with second trimester hemorrhage and pain related to a retroplacental clot/abruption seen on ultrasound. At that time, the patient expressed understanding that if bleeding in the placenta is further lifted off the lower uterine segment that it could possibly lead to miscarried . Stabilization and the bleeding with no further clot formation within the clot may resolve/absorb in could continue. 08/26: HAYESM saw patient, recommendation were to continue monitoring 08/26: Repeat ultrasound showed no significant changes to the retroplacental clot. Heartbeat the fetus still visualized 08/27: Patient reporting increased bleeding, repeated ultrasound with stabilization of clot which was slightly smaller than prior, Hgb remained stable , patient continued cramping throughout hospital stay. US showed a subchorionic hematoma located directly over the internal os measuring 7.1 x 3.2 x 5.9 cm, slightly smaller than on 07/26 08/28: Patient was discharged home Weeks Gestation: 16 Para: 1 : 3 Miscarriage: 1 History Past Medical History Narrative Medical History of addiction Possible Anxiety Obstetric History Obstetric History 1 SAB 1 Past Surgical History Surgical History: No Previous Surgery Family History Narrative Family History DM Social History Alcohol Use: No Tobacco Use: No Substance Abuse: No Allergies-Medications (Allergen,Severity, Reaction): Coded Allergies: Penicillins (Verified Allergy, Severe, HIVES, 08/29/17) amoxicillin (Verified Allergy, Severe, Hives, 08/29/17) Home Meds Active Scripts Acetaminophen (Non-Aspirin Extra Strength) 500 Mg Tab, 1000 MG PO Q6HR, #80 TAB 0 Refills Prov:Daniel Stauffer MD 08/28/17 Docusate Sodium (Colace) 100 Mg Capsule, 100 MG PO BID for Prevent Constipation , #60 CAP 0 Refills Prov:Daniel Stauffer MD 08/28/17 Ferrous Sulfate (Ferosul) 325 Mg (65 Mg Iron) Tablet, 325 MG PO BID, #60 TAB Prov:Daniel Stauffer MD 08/28/17 Reported Medications Pediatric Multivitamin No.101 (Gummy) 1 Each Tab.chew, 2 TAB PO 08/29/17 Review of Systems Except as stated in HPI: all other systems reviewed are Neg Physical Exam Narrative GENERAL: Well-nourished, well-developed patient. SKIN: Warm and dry. HEAD: Normocephalic and atraumatic. EYES: No scleral icterus. No injection or drainage. ENT: No nasal drainage noted. Mucous membranes pink. Airway patent. NECK: Supple, trachea midline. No JVD. CARDIOVASCULAR: Regular rate and rhythm without murmurs, gallops, or rubs. RESPIRATORY: Breath sounds equal bilaterally. No accessory muscle use. BREASTS: Deferred ABDOMEN/GI: Abdomen soft, non-tender, bowel sounds present, no rebound, no guarding Gravid GENITOURINARY: External Genitalia: intact and normal in appearance. Normal BUS. Her sanitary napkin was inspected which she changed prior to coming and there is some blood on the pad but less than 15% saturated. Normal BUS. Speculum examination was performed revealed a closed appearing cervical loss with a small amount of dark blood in the vaginal vault but with no active bleeding and no significant accumulation of blood in vault during examination. A vaginal examination was deferred. FHT's: heart tones were in the 150s, documented 152. EXTREMITIES: No cyanosis or edema. BACK: Nontender without obvious deformity. NEUROLOGICAL/musculoskeletal: Awake and alert. Motor and sensory grossly within normal limits. Grossly normal muscle strength in all muscle groups. Normal speech. Grossly normal range of motion, gait not assessed Psychiatric: Grossly normal memory and affect Data Data Orders Orders Ob (2e) Additional Admit Info (08/29/17 19:52) Admit To Inpatient (08/29/17 ) Diet Npo (08/30/17 Breakfast) Vital Signs (Adult) [id number] AWAKE (08/29/17 19:50) Heart CASTRO.QSHIFT (08/29/17 19:50) Activity Bed Rest With Brp (08/29/17 19:50) Complete Blood Count With Diff (08/29/17 19:50) Basic Metabolic Panel (Bmp) (08/29/17 19:50) Hepatic Functional Panel (08/29/17 19:50) Urinalysis - C+S If Indicated (08/29/17 19:50) Acetaminophen (Tylenol) (08/29/17 20:00) Jtuqkylb-Gkn-Aaems-Iron Prenat (Stuartna (08/30/17 09:00) Docusate Sodium (Colace) (08/30/17 09:00) Al-Mag Hy-Si 40-40-4 Mg/Ml Liq (Mag-Al P (08/29/17 20:00) Sodium Chloride 0.9% Flush (Ns Flush) (08/29/17 21:00) Sodium Chloride 0.9% Flush (Ns Flush) (08/29/17 20:00) Zolpidem (Ambien) (08/29/17 20:00) Ondansetron Odt (Zofran Odt) (08/29/17 20:00) Ferrous Sulfate (Ferrous Sulfate) (08/29/17 21:00) Inpatient Certification (08/29/17 ) Scd Bilateral/Knee High CASTRO.QSHIFT (08/29/17 19:52) Oxycodone-Acetamin 5-325 Mg (Percocet (08/29/17 20:00) Oxycodone-Acetamin 5-325 Mg (Percocet (08/29/17 20:00) Hydroxyzine Pamoate (Vistaril) (08/29/17 20:00) Lorazepam Inj (Ativan Inj) (08/29/17 20:00) MDM Narrative Course / MDM Assessment/Plan: 1. IUP at 16.6 2. Complete placenta previa with partial abruption and vaginal bleeding: The patient was previously admitted for a complete placenta previa with an abruption noted on previous ultrasound report. The 08/27 US showed a subchorionic hematoma located directly over the internal os measuring 7.1 x 3.2 x 5.9 cm, slightly smaller than on 07/26. The patient was discharged home yesterday on bedrest. However she reports she has continued to have bleeding which increased today so will be admitted for further observation and evaluation. Physical examination does not reveal apparent active bleeding, but will admit and monitor closely, repeat CBC now and in am, obtain coag panel, type and cross for 2 units should transfusion be indicated. Will consider repeat US in 1-2 days. The patient was counseled that should she bleed heavily and not stop she may require delivery despite the fetus a gestational age that is not viable. We discussed the possible need for surgery should it be indicated with a possible D&C/D&E, or any other indicated procedure. Discussed surgical risks should it be indicated including but not limited to pain, infection, bleeding, need for a blood transfusion, injury to other organs like the bladder/bowels/nerves/vessels, uterine perforation, uterine scarring that may interfere with subsequent pregnancies, unlikely but possible L/S or exploratory laparotomy should they be warranted. Discussed that should she deliver at this gestational age the fetus is not viable and would not survive. The patient would prefer to avoid surgery if possible. We discussed the poor prognosis and likelihood of the progressing to a viable gestational age. We will manage conservatively and monitor closely. 3. History of addiction: The mother reports that the patient is a recovering addict. 4. Headache: Patient was on Fioricet during her previous admission for headache 5. heart tones in the 150s 6. Mother reports patient has a history of anxiety: will provide medication to assist with anxiety Aurora Yang MD Aug 29, 2017 19:58
[2017-08-29] MEDS ORDERED: SODIUM CHLORIDE 0.9% FLUSH 10 ML FLUSH IV FLUSH PRN (20:00)
[2017-08-29] MEDS ORDERED: ALUMINUM/MAGNESIUM/SIMETH 30 ML CUP PO PRN (20:00)
[2017-08-29] MEDS ORDERED: LORazepam 2 MG/ML VIAL IM PRN (20:00)
[2017-08-29] MEDS ORDERED: ZOLPIDEM TARTRATE 5 MG TAB PO PRN (20:00)
[2017-08-29] MEDS ORDERED: ACETAMINOPHEN 325 MG TAB PO PRN (20:00)
[2017-08-29] MEDS ORDERED: oxyCODONE/ACETAMINOPHEN 5 MG/325 MG TAB PO PRN (20:00)
[2017-08-29] MEDS ORDERED: LACTATED RINGER'S 1000 ML INJ 1,000 ML IV ONE (20:15)
[2017-08-29] MEDS ORDERED: PEDI1TAB7 PO (20:23)
[2017-08-29] MEDS ORDERED: ACETAMIN 325 MG/BUTALBITAL 50 MG/CAFFEINE 40 MG TAB PO PRN ×2 (20:45)
[2017-08-29 20:46] LABS: BILIRUBIN, URINE NEG (NEG); BLOOD, URINE LARGE (NEG); GLUCOSE,URINE NEG (NEG); KETONE, URINE NEG (NEG); MUCUS URINE FEW /lpf (OCC); NITRITE,URINE NEG (NEG); SQUAMOUS EPITHELIAL CELL URINE <1 /hpf (0-5); URINE COLOR YELLOW (YELLW/STRAW); URINE LEUKOCYTE ESTERASE NEG (NEG)
[2017-08-29] MEDS: LACTATED RINGER'S 1000 ML INJ 1,000 ML IV SCH (20:48)
[2017-08-29] MEDS: ONDANSETRON ODT 4 MG TAB PO PRN (20:48)
[2017-08-29 20:51] LABS: AUTOMATED NEUTROPHIL # 7.9 TH/MM3 (1.8-7.7); BASOPHIL # 0.1 TH/MM3 (0-0.2); BASOPHIL % 0.5 % (0.0-2.0); EOSINOPHIL # 0.2 TH/MM3 (0-0.4); EOSINOPHIL % 1.9 % (0.0-4.0); HEMATOCRIT 32.2 % (35.0-46.0); HEMOGLOBIN 11.5 GM/DL (11.6-15.3); LYMPH % 11.1 % (9.0-44.0); LYMPHOCYTE # 1.1 TH/MM3 (1.0-4.8); MEAN CELL VOLUME 91.6 FL (80.0-100.0); MEAN CORPUSCULAR HEMOGLOBIN 32.6 PG (27.0-34.0); MEAN CORPUSCULAR HGB CONC 35.6 % (32.0-36.0); MEAN PLATELET VOLUME 9.5 FL (7.0-11.0); MONO % 7.2 % (0.0-8.0); MONOCYTE # 0.7 TH/MM3 (0-0.9); NEUT % 79.3 % (16.0-70.0); PLATELET COUNT 294 TH/MM3 (150-450); RED BLOOD COUNT 3.52 MIL/MM3 (4.00-5.30); RED CELL DISTRIBUTION WIDTH 12.4 % (11.6-17.2); WHITE BLOOD COUNT 9.9 TH/MM3 (4.0-11.0)
[2017-08-29 21:00] VITALS: RESP 18; TEMP 98.9
[2017-08-29] MEDS: FERROUS SULFATE 325 MG (65 MG ELEMENTAL IRON) TAB PO SCH (21:00)
[2017-08-29] MEDS: SODIUM CHLORIDE 0.9% FLUSH 10 ML FLUSH IV FLUSH SCH (21:00)
[2017-08-29 21:04] LABS: ALBUMIN 3.2 GM/DL (3.4-5.0); AST (GOT) 24 U/L (15-37); BICARBONATE 18.3 MEQ/L (21.0-32.0); BLOOD UREA NITROGEN 12 MG/DL (7-18); CALCIUM 8.5 MG/DL (8.5-10.1); CHLORIDE 105 MEQ/L (98-107); CREATININE 0.57 MG/DL (0.50-1.00); DIRECT BILIRUBIN ADULT LESS THAN 0.1 MG/DL (0.0-0.2); GLOMERULAR FILTRATION RATE 133 ML/MIN (>89); GLUCOSE,RANDOM 84 MG/DL (74-106); SODIUM (NA) 136 MEQ/L (136-145)
[2017-08-29 21:05] LABS: ALT (GPT) 24 U/L (10-53)
[2017-08-29 21:07] LABS: ALKALINE PHOSPHATASE 57 U/L (45-117); INDIRECT BILIRUBIN 0.1 MG/DL (0.0-0.8); TOTAL BILIRUBIN ADULT 0.2 MG/DL (0.2-1.0); TOTAL PROTEIN 6.5 GM/DL (6.4-8.2)
[2017-08-29 21:22] LABS: PROTHROMBIN TIME - PATIENT 10.2 SEC (9.8-11.6)
--- NOTE | 2017-08-29 21:37 | HHI.HP ---
History & Physical H&P atient Name: Melissa Benjamin Unit Number: [id number] Date of : 1995 Patient Status: Admitted Inpatient Attending Doctor: Aurora Yang MD HPI HPI Chief Complaint Vaginal bleeding Travel History International Travel<30 Days: No Contact w/Intl Traveler<30Days: No Known Affected Area: No History of Present Illness HPI 21-year-old , IUP at 16.6 care complicated by complete placenta previa with vaginal bleeding and recent admission/discharge, recovering addict The patient presents reporting she was discharged yesterday. She reports she has been bleeding since she was discharged yesterday. She reports her bleeding increased this morning and she reports she was saturating pads over the period of hours, not every hour. She reports that she has been passing some clots. She reports that her bleeding has decreased since she decided to come to the hospital. She denies any recent intercourse. She reports she has been on bed rest with bathroom privileges. She reports she is having some cramping. She denies any leaking of fluid. She does not yet feel movements. She reports that she has a headache but no other complaints at this time. 08/25: Admitted to antepartum service and watched for stabilization of bleeding and clot formation at 16 weeks with second trimester hemorrhage and pain related to a retroplacental clot/abruption seen on ultrasound. At that time, the patient expressed understanding that if bleeding in the placenta is further lifted off the lower uterine segment that it could possibly lead to miscarried . Stabilization and the bleeding with no further clot formation within the clot may resolve/absorb in could continue. 08/26: HAYESM saw patient, recommendation were to continue monitoring 08/26: Repeat ultrasound showed no significant changes to the retroplacental clot. Heartbeat the fetus still visualized 08/27: Patient reporting increased bleeding, repeated ultrasound with stabilization of clot which was slightly smaller than prior, Hgb remained stable , patient continued cramping throughout hospital stay. US showed a subchorionic hematoma located directly over the internal os measuring 7.1 x 3.2 x 5.9 cm, slightly smaller than on 07/26 08/28: Patient was discharged home Weeks Gestation: 16 Para: 1 : 3 Miscarriage: 1 History (Limited) History Past Medical History Narrative Medical History of addiction Possible Anxiety Obstetric History Obstetric History 1 SAB 1 Past Surgical History Surgical History: No Previous Surgery Family History Narrative Family History DM Social History Alcohol Use: No Tobacco Use: No Substance Abuse: No Allergies-Medications Allergies-Medications (Allergen,Severity, Reaction): Coded Allergies: Penicillins (Verified Allergy, Severe, HIVES, 08/29/17) amoxicillin (Verified Allergy, Severe, Hives, 08/29/17) Home Meds Active Scripts Acetaminophen (Non-Aspirin Extra Strength) 500 Mg Tab, 1000 MG PO Q6HR, #80 TAB 0 Refills Prov:Daniel Stauffer MD R1 08/28/17 Docusate Sodium (Colace) 100 Mg Capsule, 100 MG PO BID for Prevent Constipation , #60 CAP 0 Refills Prov:Daniel Stauffer MD R1 08/28/17 Ferrous Sulfate (Ferosul) 325 Mg (65 Mg Iron) Tablet, 325 MG PO BID, #60 TAB Prov:Daniel Stauffer MD R1 08/28/17 Reported Medications Pediatric Multivitamin No.101 (Gummy) 1 Each Tab.chew, 2 TAB PO 08/29/17 ROS Review of Systems Except as stated in HPI: all other systems reviewed are Neg Physical Exam Physical Exam Narrative GENERAL: Well-nourished, well-developed patient. SKIN: Warm and dry. HEAD: Normocephalic and atraumatic. EYES: No scleral icterus. No injection or drainage. ENT: No nasal drainage noted. Mucous membranes pink. Airway patent. NECK: Supple, trachea midline. No JVD. CARDIOVASCULAR: Regular rate and rhythm without murmurs, gallops, or rubs. RESPIRATORY: Breath sounds equal bilaterally. No accessory muscle use. BREASTS: Deferred ABDOMEN/GI: Abdomen soft, non-tender, bowel sounds present, no rebound, no guarding Gravid GENITOURINARY: External Genitalia: intact and normal in appearance. Normal BUS. Her sanitary napkin was inspected which she changed prior to coming and there is some blood on the pad but less than 15% saturated. Normal BUS. Speculum examination was performed revealed a closed appearing cervical loss with a small amount of dark blood in the vaginal vault but with no active bleeding and no significant accumulation of blood in vault during examination. A vaginal examination was deferred. FHT's: heart tones were in the 150s, documented 152. EXTREMITIES: No cyanosis or edema. BACK: Nontender without obvious deformity. NEUROLOGICAL/musculoskeletal: Awake and alert. Motor and sensory grossly within normal limits. Grossly normal muscle strength in all muscle groups. Normal speech. Grossly normal range of motion, gait not assessed Psychiatric: Grossly normal memory and affect Data Data Data Orders Orders Ob (2e) Additional Admit Info (08/29/17 19:52) Admit To Inpatient (08/29/17 ) Diet Npo (08/30/17 Breakfast) Vital Signs (Adult) CASTRO.P2U-TFNMO AWAKE (08/29/17 19:50) Heart CASTRO.QSHIFT (08/29/17 19:50) Activity Bed Rest With Brp (08/29/17 19:50) Complete Blood Count With Diff (08/29/17 19:50) Basic Metabolic Panel (Bmp) (08/29/17 19:50) Hepatic Functional Panel (08/29/17 19:50) Urinalysis - C+S If Indicated (08/29/17 19:50) Acetaminophen (Tylenol) (08/29/17 20:00) Pntaxkpw-Rth-Bapll-Iron Prenat (Stuartna (08/30/17 09:00) Docusate Sodium (Colace) (08/30/17 09:00) Al-Mag Hy-Si 40-40-4 Mg/Ml Liq (Mag-Al P (08/29/17 20:00) Sodium Chloride 0.9% Flush (Ns Flush) (08/29/17 21:00) Sodium Chloride 0.9% Flush (Ns Flush) (08/29/17 20:00) Zolpidem (Ambien) (08/29/17 20:00) Ondansetron Odt (Zofran Odt) (08/29/17 20:00) Ferrous Sulfate (Ferrous Sulfate) (08/29/17 21:00) Inpatient Certification (08/29/17 ) Scd Bilateral/Knee High CASTRO.QSHIFT (08/29/17 19:52) Oxycodone-Acetamin 5-325 Mg (Percocet (08/29/17 20:00) Oxycodone-Acetamin 5-325 Mg (Percocet (08/29/17 20:00) Hydroxyzine Pamoate (Vistaril) (08/29/17 20:00) Lorazepam Inj (Ativan Inj) (08/29/17 20:00) MDM MDM Narrative Course / MDM Assessment/Plan: 1. IUP at 16.6 2. Complete placenta previa with partial abruption and vaginal bleeding: The patient was previously admitted for a complete placenta previa with an abruption noted on previous ultrasound report. The 08/27 US showed a subchorionic hematoma located directly over the internal os measuring 7.1 x 3.2 x 5.9 cm, slightly smaller than on 07/26. The patient was discharged home yesterday on bedrest. However she reports she has continued to have bleeding which increased today so will be admitted for further observation and evaluation. Physical examination does not reveal apparent active bleeding, but will admit and monitor closely, repeat CBC now and in am, obtain coag panel, type and cross for 2 units should transfusion be indicated. Will consider repeat US in 1-2 days. The patient was counseled that should she bleed heavily and not stop she may require delivery despite the fetus a gestational age that is not viable. We discussed the possible need for surgery should it be indicated with a possible D&C/D&E, or any other indicated procedure. Discussed surgical risks should it be indicated including but not limited to pain, infection, bleeding, need for a blood transfusion, injury to other organs like the bladder/bowels/nerves/vessels, uterine perforation, uterine scarring that may interfere with subsequent pregnancies, unlikely but possible L/S or exploratory laparotomy should they be warranted. Discussed that should she deliver at this gestational age the fetus is not viable and would not survive. The patient would prefer to avoid surgery if possible. We discussed the poor prognosis and likelihood of the progressing to a viable gestational age. We will manage conservatively and monitor closely. 3. History of addiction: The mother reports that the patient is a recovering addict. 4. Headache: Patient was on Fioricet during her previous admission for headache 5. heart tones in the 150s 6. Mother reports patient has a history of anxiety: will provide medication to assist with anxiety Aurora Yang MD Aug 29, 2017 19:58 Aurora Yang MD Aug 29, 2017 21:37
[2017-08-29 21:49] VITALS: BP 98/46; PULSE 70; RESP 18
[2017-08-29 22:00] VITALS: TEMP 98.9
[2017-08-29 23:00] VITALS: RESP 18
[2017-08-30] VITALS (19 sets, daily range): BP systolic 74–104; BP diastolic 30–59; PULSE 60–74; RESP 16–18; TEMP 97.5–98.9
[2017-08-30] MEDS: LACTATED RINGER'S 1000 ML INJ 1,000 ML IV SCH ×3 (02:05→20:01)
[2017-08-30] MEDS: DOCUSATE SODIUM 100 MG CAP PO SCH ×2 (09:00→20:02)
[2017-08-30] MEDS: FERROUS SULFATE 325 MG (65 MG ELEMENTAL IRON) TAB PO SCH ×2 (09:00→21:00)
[2017-08-30] MEDS: MULTIVIT/MIN/PREN/FOL AC/IRON PRENATAL TAB PO SCH (09:00)
[2017-08-30] MEDS: SODIUM CHLORIDE 0.9% FLUSH 10 ML FLUSH IV FLUSH SCH ×2 (09:00→21:00)
--- NOTE | 2017-08-30 10:10 | PD.OB.ANTE ---
Subjective Interval History Patient seen and examined this morning. Patient soaked 1 pad in 4 hours. Endorses occasional cramping. Denies any big clots. Otherwise, denies any fever/chills, chest pain, shortness of breath, leg pain. Antepartum ROS: Reports: Vaginal bleeding, movement normal, Denies: New complaints, Loss of fluid, Contractions Objective Vital Signs Vital Signs Date Time Temp Pulse Resp B/P (MAP) Pulse Ox O2 Delivery O2 Flow Rate FiO2 08/30/17 09:33 18 08/30/17 09:23 98.3 08/30/17 09:23 66 95/46 (62) 08/30/17 06:24 60 93/47 (62) 08/30/17 06:23 98.9 08/30/17 06:22 18 08/30/17 05:31 18 08/30/17 04:23 18 08/30/17 04:07 18 08/30/17 04:00 18 08/30/17 02:00 18 08/30/17 02:00 18 08/30/17 01:59 64 104/44 (64) 08/30/17 01:00 18 08/30/17 00:00 18 08/29/17 23:00 18 08/29/17 22:00 98.9 08/29/17 21:49 18 08/29/17 21:49 70 98/46 (63) 08/29/17 21:00 18 08/29/17 21:00 98.9 Intake & Output 08/30/17 08/30/17 07:00 19:00 Intake Total 950 ml Balance 950 ml Intake IV Total 950 ml Lab & Micro Results Test 08/29/17 19:30 08/29/17 20:28 Urine Color YELLOW Urine Turbidity CLEAR Urine pH 5.0 Urine Specific [place] 1.021 Urine Protein NEG mg/dL Urine Glucose (UA) NEG mg/dL Urine Ketones NEG mg/dL Urine Occult Blood LARGE Urine Nitrite NEG Urine Bilirubin NEG Urine Urobilinogen LESS THAN 2 mg/dL Urine Leukocyte Esterase NEG Urine RBC 1 /hpf Urine WBC 1 /hpf Urine Squamous Epithelial Cells <1 /hpf Urine Mucus FEW /lpf Microscopic Urinalysis Comment CULT NOT INDICATED Urine Opiates Screen NEG Urine Barbiturates Screen POS Urine Amphetamines Screen NEG Urine Benzodiazepines Screen NEG Urine Cocaine Screen NEG Urine Cannabinoids Screen POS White Blood Count 9.9 TH/MM3 Red Blood Count 3.52 MIL/MM3 Hemoglobin 11.5 GM/DL Hematocrit 32.2 % Mean Corpuscular Volume 91.6 FL Mean Corpuscular Hemoglobin 32.6 PG Mean Corpuscular Hemoglobin Concent 35.6 % Red Cell Distribution Width 12.4 % Platelet Count 294 TH/MM3 Mean Platelet Volume 9.5 FL Neutrophils (%) (Auto) 79.3 % Lymphocytes (%) (Auto) 11.1 % Monocytes (%) (Auto) 7.2 % Eosinophils (%) (Auto) 1.9 % Basophils (%) (Auto) 0.5 % Neutrophils # (Auto) 7.9 TH/MM3 Lymphocytes # (Auto) 1.1 TH/MM3 Monocytes # (Auto) 0.7 TH/MM3 Eosinophils # (Auto) 0.2 TH/MM3 Basophils # (Auto) 0.1 TH/MM3 CBC Comment DIFF FINAL Differential Comment Prothrombin Time 10.2 SEC Prothromb Time International Ratio 1.0 RATIO Activated Partial Thromboplast Time 25.4 SEC Fibrinogen 376 mg/dL Blood Urea Nitrogen 12 MG/DL Creatinine 0.57 MG/DL Random Glucose 84 MG/DL Total Protein 6.5 GM/DL Albumin 3.2 GM/DL Calcium Level 8.5 MG/DL Alkaline Phosphatase 57 U/L Aspartate Amino Transf (AST/SGOT) 24 U/L Alanine Aminotransferase (ALT/SGPT) 24 U/L Total Bilirubin 0.2 MG/DL Direct Bilirubin LESS THAN 0.1 MG/DL Sodium Level 136 MEQ/L Potassium Level 3.9 MEQ/L Chloride Level 105 MEQ/L Carbon Dioxide Level 18.3 MEQ/L Anion Gap 13 MEQ/L Estimat Glomerular Filtration Rate 133 ML/MIN Indirect Bilirubin 0.1 MG/DL Physical Exam GENERAL: Well-nourished, well-developed patient. CARDIOVASCULAR: Regular rate and rhythm without murmurs, gallops, or rubs. RESPIRATORY: Breath sounds equal bilaterally. No accessory muscle use. ABDOMEN/GI: Abdomen soft, non-tender. Fundus: Gravid to 17 weeks GENITOURINARY: EXTREMITIES: No cyanosis or edema, non-tender, without signs of DVT. Assessment and Plan Assessment and Plan 21-year-old at 17 weeks presented for placenta previa continual vaginal bleeding. 1) Complete placenta previa with partial abruption and vaginal bleeding. 08/27 US showed a subchorionic hematoma located directly over the internal os measuring 7.1 x 3.2 x 5.9 cm, slightly smaller than on 07/26 CBC stable -Repeat ultrasound in 1-2 days -Monitor for bleeding. -Discussed need for possible surgery -Continue conservative management and monitor -Monitor FHT 2) Recovering addict UDS+ barbiturates and marijuana -Conservative management -Pain meds as needed -Fioricet for headache 3) Anxiety -Vistaril PRN sdw Celso De Dios MD R2 Aug 30, 2017 10:10
[2017-08-30 10:20] LABS: HEMATOCRIT 30.7 % (35.0-46.0); HEMOGLOBIN 10.7 GM/DL (11.6-15.3); MEAN CELL VOLUME 91.7 FL (80.0-100.0); MEAN CORPUSCULAR HGB CONC 34.9 % (32.0-36.0); MEAN PLATELET VOLUME 9.2 FL (7.0-11.0); PLATELET COUNT 251 TH/MM3 (150-450); RED BLOOD COUNT 3.35 MIL/MM3 (4.00-5.30); RED CELL DISTRIBUTION WIDTH 12.5 % (11.6-17.2); WHITE BLOOD COUNT 8.7 TH/MM3 (4.0-11.0)
[2017-08-30] MEDS: oxyCODONE/ACETAMINOPHEN 5 MG/325 MG TAB PO PRN (20:02)
[2017-08-30] MEDS: LORazepam 1 MG TAB PO PRN (20:02)
[2017-08-31] MEDS: ONDANSETRON ODT 4 MG TAB PO PRN (02:50)
[2017-08-31] MEDS: oxyCODONE/ACETAMINOPHEN 5 MG/325 MG TAB PO PRN (02:51)
--- NOTE | 2017-08-31 07:37 | PD.OB.ANTE ---
Subjective Interval History Patient reports pain in her lower abdomen and dark, thick blood overnight which she states is more than she bled at home before coming back to the hospital. No fever or chills, she is able to eat without problems. Antepartum ROS: Reports: Vaginal bleeding, Contractions Objective Vital Signs Vital Signs Date Time Temp Pulse Resp B/P (MAP) Pulse Ox O2 Delivery O2 Flow Rate FiO2 08/30/17 19:47 66 82/34 (50) 08/30/17 19:47 98.3 16 08/30/17 17:50 16 08/30/17 17:50 98.6 08/30/17 17:49 74 97/48 (64) 08/30/17 16:36 71 91/30 (50) 08/30/17 16:34 70 74/59 (64) 08/30/17 16:34 98.5 16 08/30/17 11:57 70 92/51 (65) 08/30/17 11:56 97.5 16 08/30/17 09:33 18 08/30/17 09:23 98.3 08/30/17 09:23 66 95/46 (62) Lab & Micro Results Test 08/30/17 10:11 White Blood Count 8.7 TH/MM3 Red Blood Count 3.35 MIL/MM3 Hemoglobin 10.7 GM/DL Hematocrit 30.7 % Mean Corpuscular Volume 91.7 FL Mean Corpuscular Hemoglobin 32.0 PG Mean Corpuscular Hemoglobin Concent 34.9 % Red Cell Distribution Width 12.5 % Platelet Count 251 TH/MM3 Mean Platelet Volume 9.2 FL Physical Exam GENERAL: Well-nourished, well-developed patient. CARDIOVASCULAR: Regular rate and rhythm without murmurs, gallops, or rubs. RESPIRATORY: Breath sounds equal bilaterally. No accessory muscle use. ABDOMEN/GI: Abdomen soft, non-tender. Fundus: gravid GENITOURINARY: Uterine Contractions: minimal FHT's: 130's by doppler EXTREMITIES: No cyanosis or edema, non-tender, without signs of DVT. Assessment and Plan Assessment and Plan 21-year-old at 17/1 weeks presented for placenta previa continual vaginal bleeding. 1) Complete placenta previa with partial abruption and vaginal bleeding. 08/27 US showed a subchorionic hematoma located directly over the internal os measuring 7.1 x 3.2 x 5.9 cm, slightly smaller than on 07/26 CBC stable -Repeat ultrasound in 1-2 days -Monitor for bleeding. -Discussed need for possible surgery -Continue conservative management for now and monitor closely -Monitor FHT 2) Recovering addict UDS+ barbiturates and marijuana -Conservative management -Pain meds as needed -Fioricet for headache 3) Anxiety -Vistaril RENAN Rodriges,Azalia PATTERSON R2 Aug 31, 2017 07:37
[2017-08-31 07:44] VITALS: BP 100/53; PULSE 73
[2017-08-31 07:47] VITALS: RESP 16; TEMP 98.1
[2017-08-31] MEDS: FERROUS SULFATE 325 MG (65 MG ELEMENTAL IRON) TAB PO SCH ×2 (09:00→21:01)
[2017-08-31] MEDS: SODIUM CHLORIDE 0.9% FLUSH 10 ML FLUSH IV FLUSH SCH ×2 (09:00→20:55)
[2017-08-31] MEDS: MULTIVIT/MIN/PREN/FOL AC/IRON PRENATAL TAB PO SCH (09:00)
[2017-08-31] MEDS: DOCUSATE SODIUM 100 MG CAP PO SCH (09:09)
[2017-08-31] MEDS: LACTATED RINGER'S 1000 ML INJ 1,000 ML IV SCH ×2 (09:53→23:33)
[2017-08-31] MEDS: LORazepam 1 MG TAB PO PRN ×2 (09:53→19:42)
--- NOTE | 2017-08-31 17:15 | HHI.PR ---
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 I discussed with her her diagnosis of placenta previa with bleeding in detail and the possible complications of hemorrhage particularly if it took place outside the hospital. I also reviewed her ultrasound images and her MRI images. Ultrasound shows a posterior placenta previa with the anterior portion of the previa under her scar, no thickening around the scar and I see no increased vascularity. Additionally there is a clean delineation between the anterior lower segment of the uterus and the bladder. The MRI was reviewed with the radiologist who cannot see any evidence of a accreta at this time but cannot rule it out completely. I discussed in detail with the patient the necessity for a section with the possibilities of hemorrhage necessitating blood transfusion or hysterectomy. We also discussed the small possibilities of a placenta accreta given the placenta under the section scar. Patient will also be given an iron infusion today to increase her H&H. She also has a history of a DVT in the past and with her obesity, , and strict bedrest she is at risk for another DVT. She is present presently on heparin prophylaxis instead of Lovenox which will be discontinued prior to her section. At this point she has decided that she would stay in the hospital but has a great amount of anxiety due to childcare. Ultrasound was ordered with perinatology consultation when they are here later this week. Sherrell Wiley MD Aug 31, 2017 17:15
[2017-08-31 22:33] VITALS: RESP 16
[2017-09-01 04:13] LABS: HEMATOCRIT 31.8 % (35.0-46.0); HEMOGLOBIN 11.3 GM/DL (11.6-15.3); MEAN CELL VOLUME 91.7 FL (80.0-100.0); MEAN CORPUSCULAR HEMOGLOBIN 32.5 PG (27.0-34.0); MEAN CORPUSCULAR HGB CONC 35.4 % (32.0-36.0); MEAN PLATELET VOLUME 9.5 FL (7.0-11.0); PLATELET COUNT 271 TH/MM3 (150-450); RED BLOOD COUNT 3.46 MIL/MM3 (4.00-5.30); RED CELL DISTRIBUTION WIDTH 12.4 % (11.6-17.2); WHITE BLOOD COUNT 7.3 TH/MM3 (4.0-11.0)
--- NOTE | 2017-09-01 08:21 | PD.OB.ANTE ---
Subjective Interval History No increased bleeding overnight. Patient was able to rest throughout night without any complaints. No fever, chills. Objective Vital Signs Vital Signs Date Time Temp Pulse Resp B/P (MAP) Pulse Ox O2 Delivery O2 Flow Rate FiO2 08/31/17 22:33 16 08/31/17 19:21 18 Lab & Micro Results Test 09/01/17 03:45 White Blood Count 7.3 TH/MM3 Red Blood Count 3.46 MIL/MM3 Hemoglobin 11.3 GM/DL Hematocrit 31.8 % Mean Corpuscular Volume 91.7 FL Mean Corpuscular Hemoglobin 32.5 PG Mean Corpuscular Hemoglobin Concent 35.4 % Red Cell Distribution Width 12.4 % Platelet Count 271 TH/MM3 Mean Platelet Volume 9.5 FL Physical Exam GENERAL: Well-nourished, well-developed patient. CARDIOVASCULAR: Regular rate and rhythm without murmurs, gallops, or rubs. RESPIRATORY: Breath sounds equal bilaterally. No accessory muscle use. ABDOMEN/GI: Abdomen soft, non-tender. GENITOURINARY: Uterine Contractions: No contractions on the monitor EXTREMITIES: No cyanosis or edema, non-tender, without signs of DVT. Assessment and Plan Assessment and Plan 21-year-old at 17/2 weeks presented for placenta previa continual vaginal bleeding. 1) Complete placenta previa with partial abruption and vaginal bleeding. 08/27 US showed a subchorionic hematoma located directly over the internal os measuring 7.1 x 3.2 x 5.9 cm, slightly smaller than on 07/26 CBC stable -Monitor for bleeding. -Discussed need for possible surgery -Continue conservative management for now and monitor closely -No significant bleeding overnight. Discussed with patient the possibility of discharge with close follow-up. 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
[2017-09-01] MEDS: MULTIVIT/MIN/PREN/FOL AC/IRON PRENATAL TAB PO SCH (09:00)
[2017-09-01] MEDS: SODIUM CHLORIDE 0.9% FLUSH 10 ML FLUSH IV FLUSH SCH (09:00)
[2017-09-01] MEDS: FERROUS SULFATE 325 MG (65 MG ELEMENTAL IRON) TAB PO SCH (09:00)
--- NOTE | 2017-09-01 13:11 | HHI.DCPOC ---
Discharge Care Plan Diagnosis: (1) Placenta previa Goals to Promote Your Health * To prevent worsening of your condition and complications * To maintain your health at the optimal level Directions to Meet Your Goals Take your medications as prescribed Follow your dietary instruction Follow activity as directed Keep your appointments as scheduled Take your immunizations and boosters as scheduled If your symptoms worsen call your PCP, if no PCP go to Urgent Care Center or Emergency Room Smoking is Dangerous to Your Health. Avoid second hand smoke Call the 24-hour hour crisis hotline for domestic abuse at Maira Gutiérrez MD R3 Sep 01, 2017 13:11
[2017-09-01] MEDS ORDERED: MAGNESIUM HYDROXIDE SUSP 30 ML CUP PO PRN (15:15)
[2017-09-01] MEDS ORDERED: BISACODYL 10 MG SUPP RECTAL PRN (15:15)
[2017-09-01] MEDS ORDERED: MINERAL OIL ENEMA 118 ML BTL RECTAL ONE (15:30)
[2017-09-01] MEDS ORDERED: DOCUSATE SODIUM 50 MG/SENNA 8.6 MG TAB PO SCH (21:00)
== END 2017-09-01 16:40 | disposition home or self-care (01) | DRG 781 ==
LOC: HOBED 19:21 → H2EA 19:54 → H2EB 19:58
PROVIDERS: ADMIT Obstetrics & Gynecology; ATTEND Obstetrics & Gynecology
DX: O44.12 Complete placenta previa with hemorrhage, second trimester (principal); O99.342 Other mental disorders complicating pregnancy, second trimester; O99.322 Drug use complicating pregnancy, second trimester; F41.9 Anxiety disorder, unspecified; R51 Headache; Z3A.16 16 weeks gestation of pregnancy; Z86.718 Personal history of other venous thrombosis and embolism; Z88.0 Allergy status to penicillin
CPT/HCPCS: 76815; 80048; 80076; 80307; 81001; 85025; 85027; 85384; 85610; 85730; 86850; 86900; 86901; 86920; G0481; J3010; J7120

== ENCOUNTER 2017-09-06 03:48 | Inpatient (IN) | payer MEDICAID ==
[~2017-09-06] VITALS: Ht 154.9 cm; Wt 66.0 kg
[~2017-09-06 03:48] MED LIST changes: +PEDI1TAB7 PO
[2017-09-06] MEDS ORDERED: SODIUM CHLOR 0.9% 250 ML INJ 250 ML IV ONE (04:45)
[2017-09-06 04:52] LABS: AUTOMATED NEUTROPHIL # 17.4 TH/MM3 (1.8-7.7); BASOPHIL % 0.2 % (0.0-2.0); EOSINOPHIL # 0.2 TH/MM3 (0-0.4); EOSINOPHIL % 0.8 % (0.0-4.0); HEMATOCRIT 33.7 % (35.0-46.0); HEMOGLOBIN 11.7 GM/DL (11.6-15.3); LYMPH % 4.8 % (9.0-44.0); LYMPHOCYTE # 0.9 TH/MM3 (1.0-4.8); MEAN CELL VOLUME 92.3 FL (80.0-100.0); MEAN CORPUSCULAR HEMOGLOBIN 31.9 PG (27.0-34.0); MEAN CORPUSCULAR HGB CONC 34.6 % (32.0-36.0); MEAN PLATELET VOLUME 9.5 FL (7.0-11.0); MONO % 3.5 % (0.0-8.0); MONOCYTE # 0.7 TH/MM3 (0-0.9); NEUT % 90.7 % (16.0-70.0); PLATELET COUNT 308 TH/MM3 (150-450); RED BLOOD COUNT 3.65 MIL/MM3 (4.00-5.30); RED CELL DISTRIBUTION WIDTH 12.7 % (11.6-17.2); WHITE BLOOD COUNT 19.1 TH/MM3 (4.0-11.0)
--- NOTE | 2017-09-06 04:59 | HHI.HP ---
History & Physical H&P HPI Chief Complaint vaginal bleeding Date Seen: Sep 06, 2017 Time Seen: 05:04 Travel History International Travel<30 Days: No Contact w/Intl Traveler<30Days: No Known Affected Area: No History of Present Illness HPI Patient is a 21-year-old female GE to P1 at 18 weeks gestation presented to OB triage due to complaints of vaginal bleeding that started while she was asleep. This has been complicated by vaginal bleeding. Denies LOF, movement or contractions. Endorses abdominal cramping and N/V. Denies CP, SOB, BARRIENTOS, dizziness, LE swelling or vision issues. This has also been complicated by placenta previa and hematoma that was found on OB u/s. repeat OB u/u on 09/01 showed: Continual observation of complete placenta previa and subchorionic hematoma located over the internal cervical os and behind the anterior placenta decreased in size. Weeks Gestation: 18 Para: 1 : 3 Miscarriage: 1 History (Limited) History Past Medical History Narrative Medical History of addiction Possible Anxiety Obstetric History Obstetric History 1 SAB 1 current complicated by placenta previa Past Surgical History Surgical History: No Previous Surgery Family History Narrative Family History DM Social History Alcohol Use: No Tobacco Use: No Substance Abuse: No Allergies-Medications Allergies-Medications (Allergen,Severity, Reaction): Coded Allergies: Penicillins (Verified Allergy, Severe, HIVES, 08/29/17) amoxicillin (Verified Allergy, Severe, Hives, 08/29/17) Home Meds Active Scripts Acetaminophen (Non-Aspirin Extra Strength) 500 Mg Tab, 1000 MG PO Q6HR, #80 TAB 0 Refills Prov:Daniel Stauffer MD R1 08/28/17 Docusate Sodium (Colace) 100 Mg Capsule, 100 MG PO BID for Prevent Constipation , #60 CAP 0 Refills Prov:Daniel Stauffer MD R1 08/28/17 Ferrous Sulfate (Ferosul) 325 Mg (65 Mg Iron) Tablet, 325 MG PO BID, #60 TAB Prov:Daniel Stauffer MD R1 08/28/17 Reported Medications Pediatric Multivitamin No.101 (Gummy) 1 Each Tab.chew, 2 TAB PO 08/29/17 ROS Review of Systems Except as stated in HPI: all other systems reviewed are Neg Physical Exam Physical Exam Narrative GENERAL: Well-nourished, well-developed patient. SKIN: Warm and dry. HEAD: Normocephalic and atraumatic. EYES: No scleral icterus. No injection or drainage. ENT: No nasal drainage noted. Mucous membranes pink. Airway patent. NECK: Supple, trachea midline. No JVD. CARDIOVASCULAR: Regular rate and rhythm without murmurs, gallops, or rubs. RESPIRATORY: Breath sounds equal bilaterally. No accessory muscle use. ABDOMEN/GI: Abdomen soft, non-tender, bowel sounds present, no rebound, no guarding Gravid to 18 weeks size GENITOURINARY: External Genitalia: intact and normal in appearance FHT's: 150s EXTREMITIES: No cyanosis or edema. +2 DP pulses BL. BACK: Nontender without obvious deformity. No CVA tenderness. NEUROLOGICAL: Awake and alert. Motor and sensory grossly within normal limits. Five out of 5 muscle strength in all muscle groups. Normal speech. Data Data Data Vital Signs Reviewed: Yes Orders Orders Type And Screen (09/06/17 04:37) Complete Blood Count With Diff (09/06/17 04:37) Prothrombin Time / Inr (Pt) (09/06/17 04:37) Act Partial Throm Time (Ptt) (09/06/17 04:37) Red Blood Cells (Rbc) (09/06/17 04:42) Blood Product Administration .UPON TRANSFUSION (09/06/17 04:42) Instruction (09/06/17 04:42) Sodium Chlor 0.9% 250 Ml Inj (Ns 250 Ml (09/06/17 04:45) Ob (2e) Additional Admit Info (09/06/17 04:51) Red Blood Cells (Rbc) (09/06/17 04:51) Labs Laboratory Tests Test 09/06/17 04:20 White Blood Count 19.1 Red Blood Count 3.65 Hemoglobin 11.7 Hematocrit 33.7 Mean Corpuscular Volume 92.3 Mean Corpuscular Hemoglobin 31.9 Mean Corpuscular Hemoglobin Concent 34.6 Red Cell Distribution Width 12.7 Platelet Count 308 Mean Platelet Volume 9.5 Neutrophils (%) (Auto) 90.7 Lymphocytes (%) (Auto) 4.8 Monocytes (%) (Auto) 3.5 Eosinophils (%) (Auto) 0.8 Basophils (%) (Auto) 0.2 Neutrophils # (Auto) 17.4 Lymphocytes # (Auto) 0.9 Monocytes # (Auto) 0.7 Eosinophils # (Auto) 0.2 Basophils # (Auto) 0.0 CBC Comment DIFF FINAL Differential Comment MDM MDM Medical Record Reviewed: Yes Plan Patient is a 21-year-old female GE to P1 at 18 weeks gestation presented to OB triage due to complaints of vaginal bleeding that started while she was asleep. has been complicated by placenta previa. IUP at 18 weeks gestation -pt to remain NPO -VS WNL - c/w monitor vs -FHT in the 150s -bedside u/s showing severe oligo -fentanyl for pain - follow up: - OB u/s to determine placenta location -type and screen, coag studies, cbc -admit to labor & delivery for observation -OB u/s showed: placenta no longer previa, severe oligo consistent with rupture , Cl 2.68 Diagnosis Diagnosis: Primary Impression: Placenta previa Additional Impression: 18 weeks gestation of (Pura Echevarria MD, R1) H&P History: In addition the patient did report leakage of fluid at the time of her presentation. Objective: Ultrasound performed by OB diagnostics showed resolution of the placenta previa. Ultrasound findings consistent with severe oligohydramnios. Cervical length was 2.7 cm with breech presentation Assessment: 18 week intrauterine with ruptured membranes Plan: An extensive discussion with the patient regarding the findings of her examination and the implications for was undertaken. The patient understands that this previable gestation has no chance of survival at this gestational age. Consent was obtained for potential surgical intervention with D&E or other mechanisms necessary to control bleeding. Ideally she will be able to deliver vaginally now that the previa has resolved. (Scar Thomas MD) Pura Echevarria MD, R1 Sep 06, 2017 04:59 Scar Thomas MD Sep 06, 2017 09:41
[2017-09-06 05:02] LABS: PROTHROMBIN TIME - PATIENT 9.7 SEC (9.8-11.6)
[2017-09-06] MEDS ORDERED: ONDANSETRON ODT 4 MG TAB PO PRN (05:15)
[2017-09-06] MEDS ORDERED: ONDANSETRON HCL 4 MG/2 ML VIAL ONE (05:18)
[2017-09-06] MEDS: LACTATED RINGER'S 1000 ML INJ 1,000 ML IV SCH (07:23)
[2017-09-06] MEDS ORDERED: Gentamicin Consult Pharmacy 1 EA OTHER SCH (09:15)
[2017-09-06] MEDS ORDERED: MISOPROSTOL 200 MCG TAB PO ONE (09:30)
--- NOTE | 2017-09-06 09:31 | HHI.PR ---
CURB SETTER Note Note The patient reports intermittent abdominal pain which is partially relieved with fentanyl. Following fentanyl dosing she describes her pain as 7 out of 10. Objective: Temperature 100.4 heart rate and blood pressure stable Alert and oriented Abdomen soft, tender without rebound Extremities: Good capillary refill, warm and dry Assessment: 18 week intrauterine with ruptured membranes and fever consistent with evolving septic AB Plan: I discussed with the patient the concern regarding further expectant management. After reviewing the risks benefits and alternatives she has consented to proceed with Cytotec for evacuation of septic AB. Initiate clindamycin 900 mg every 8 hours IV and gentamicin 5 mg/kg every 24 hours. Blood cultures Anesthesia consult for epidural The patient's proposed treatment course was reviewed with Dr. Thierry Grant who is chief of the department of obstetrics. He agrees with this management. Scar Thomas MD Sep 06, 2017 09:31
[2017-09-06] MEDS ORDERED: fentaNYL 2MCG-BUPIV 0.125% INJ 150 ML EPIDURAL ONE (09:56)
[2017-09-06] MEDS ORDERED: ePHEDrine/NS 25 MG/5 ML SYRINGE ONE (09:56)
[2017-09-06] MEDS: CLINDAMYCIN 900 MG/NS PREMIX 50 ML IV SCH ×3 (10:06→21:54)
[2017-09-06] MEDS: GENTAMICIN INJ 275 MG in SODIUM CHLORIDE 0.9% INJ 100 ML IV SCH (10:37)
[2017-09-06] MEDS ORDERED: fentaNYL 2MCG-BUPIV 0.125% 150 ML EPIDURAL PRN (11:30)
[2017-09-06] MEDS ORDERED: DO NOT ADMINISTER ANTICOAGULANTS PRN (11:30)
[2017-09-06] MEDS ORDERED: ePHEDrine/NS 25 MG/5 ML SYRINGE IV PUSH PRN (11:30)
[2017-09-06] MEDS ORDERED: NO SYSTEM NARCOTICS PRN (11:30)
[2017-09-06 11:52] VITALS: RESP 19
[2017-09-06] MEDS ORDERED: OXYTOCIN 30 UNITS-500ML PREMIX 500 ML ONE (12:16)
[2017-09-06] MEDS ORDERED: OXYTOCIN 10 UNIT/ML AMP ONE (12:18)
[2017-09-06] MEDS ORDERED: OXYTOCIN 10 UNIT/ML AMP IV SCH (12:45)
--- NOTE | 2017-09-06 12:47 | PD.OB.DELI ---
Weeks gestation: 18 Anesthesia: Epidural Episiotomy: None Vaginal Delivery: Normal Presentation: Breech Nuchal Cord: None Delayed cord clamping (45 sec): No Delivery date: Sep 06, 2017 Delivery time: 12:05 One Minute : 0 Five Minute : 0 Placenta: Spontaneous delivery, Intact Laceration: No lacerations Emi Nichols MD Sep 06, 2017 12:47
[2017-09-06 13:17] LABS: BILIRUBIN, URINE NEG (NEG); BLOOD, URINE NEG (NEG); GLUCOSE,URINE NEG (NEG); KETONE, URINE NEG (NEG); MUCUS URINE FEW /lpf (OCC); NITRITE,URINE NEG (NEG); URINE COLOR YELLOW (YELLW/STRAW); URINE LEUKOCYTE ESTERASE NEG (NEG)
[2017-09-06] MEDS ORDERED: ACETAMINOPHEN 325 MG TAB PO PRN (13:30)
[2017-09-06] MEDS: IBUPROFEN 600 MG TAB PO PRN ×2 (16:16→20:06)
[2017-09-06] MEDS: oxyCODONE/ACETAMINOPHEN 5 MG/325 MG TAB PO PRN ×2 (17:26→21:58)
[2017-09-06] MEDS ORDERED: ZOLPIDEM TARTRATE 10 MG TAB PO ONE (21:00)
[2017-09-07] MEDS: CLINDAMYCIN 900 MG/NS PREMIX 50 ML IV SCH ×2 (04:00→10:23)
[2017-09-07 07:32] LABS: CREATININE 0.47 MG/DL (0.50-1.00)
[2017-09-07] MEDS ORDERED: IBUP-232 PO (08:21)
[2017-09-07] MEDS ORDERED: METR-1 PO (08:21)
[2017-09-07] MEDS ORDERED: LEVA500T33 PO (08:21)
[2017-09-07] MEDS ORDERED: OXYC1TAB63 PO (08:21)
--- NOTE | 2017-09-07 08:27 | HHI.OB ---
Subjective Post Day: 1 Remarks pain controlled, mod lochia, +void/flatus, norm po Objective Vitals/I&O Vital Signs Date Time Temp Pulse Resp B/P (MAP) Pulse Ox O2 Delivery O2 Flow Rate FiO2 09/06/17 11:52 19 Objective Remarks GENERAL: Well-nourished, well-developed patient. CARDIOVASCULAR: Regular rate and rhythm without murmurs, gallops, or rubs. RESPIRATORY: Breath sounds equal bilaterally. No accessory muscle use. ABDOMEN/GI: Abdomen soft, non-tender. Fundus: Firm, non-tender at umbilicus. GENITOURINARY: Light to moderate bleeding. EXTREMITIES: No cyanosis or edema, non-tender, without signs of DVT. Medications and IVs Current Medications Medications (Trade) Dose Ordered Sig/Berna Route Start Time Stop Time Status Last Admin (Zofran Odt) 4 mg Q6H PRN PO 09/06/17 05:15 (fentaNYL INJ) 50 mcg Q1H PRN IV PUSH 09/06/17 05:15 (fentaNYL INJ) 100 mcg Q1H PRN IV PUSH 09/06/17 05:15 09/06/17 08:33 Lactated Ringer's 1,000 ml @ 125 mls/hr Q8H IV 09/06/17 07:15 09/06/17 07:23 Pharmacy Profile Note 0 ml @ 0 mls/hr UNSCH OTHER 09/06/17 09:15 Clindamycin/ Sodium Chloride 50 ml @ 100 mls/hr Q6H IV 09/06/17 10:00 09/07/17 04:00 Gentamicin Sulfate 275 mg/ Sodium Chloride 106.875 ml @ 200 mls/ hr Q24H IV 09/06/17 11:00 09/06/17 10:37 ([facility] [place] [facility]) No systemic narcotics to be given except... UNSCH PRN .XX 09/06/17 11:30 09/07/17 11:29 ([facility] [place] [facility] Information) DO NOT ADMINISTER ANY ANTICOAGUL... UNSCH PRN .XX 09/06/17 11:30 09/07/17 11:29 Fentanyl/ Bupivacaine/ Sodium Chlor 150 ml @ 0 mls/hr TITRATE PRN EPIDURAL 09/06/17 11:30 09/06/17 11:52 (ePHEDrine/NS 25 MG/5 ML SYR) 10 mg UNSCH PRN IV PUSH 09/06/17 11:30 09/07/17 11:29 (Pitocin Inj) 12.5 units TITRATE IV 09/06/17 12:45 09/06/17 14:32 (Tylenol) 650 mg Q4H PRN PO 09/06/17 13:30 09/06/17 13:54 (Motrin) 600 mg Q6H PRN PO 09/06/17 16:15 09/06/17 20:06 (Percocet 5-325 Mg) 2 tab Q4H PRN PO 09/06/17 17:30 09/06/17 21:58 Assessment/Plan Problem List: (1) with septicemia ICD Codes: O03.87 - Sepsis following complete or unspecified spontaneous Plan: s/p afebrile greater than 18 hours d/c home on levaquin and flagyl (2) 18 weeks gestation of ICD Codes: Z3A.18 - 18 weeks gestation of Status: Acute Emi Nichols MD Sep 07, 2017 08:27
[2017-09-07 09:24] LABS: AUTOMATED NEUTROPHIL # 4.6 TH/MM3 (1.8-7.7); BASOPHIL % 0.5 % (0.0-2.0); EOSINOPHIL # 0.2 TH/MM3 (0-0.4); EOSINOPHIL % 2.6 % (0.0-4.0); HEMATOCRIT 26.3 % (35.0-46.0); HEMOGLOBIN 9.3 GM/DL (11.6-15.3); LYMPH % 13.3 % (9.0-44.0); LYMPHOCYTE # 0.8 TH/MM3 (1.0-4.8); MEAN CELL VOLUME 93.2 FL (80.0-100.0); MEAN CORPUSCULAR HEMOGLOBIN 32.9 PG (27.0-34.0); MEAN CORPUSCULAR HGB CONC 35.3 % (32.0-36.0); MEAN PLATELET VOLUME 8.8 FL (7.0-11.0); MONO % 5.4 % (0.0-8.0); MONOCYTE # 0.3 TH/MM3 (0-0.9); NEUT % 78.2 % (16.0-70.0); PLATELET COUNT 214 TH/MM3 (150-450); RED BLOOD COUNT 2.82 MIL/MM3 (4.00-5.30); RED CELL DISTRIBUTION WIDTH 12.4 % (11.6-17.2); WHITE BLOOD COUNT 5.9 TH/MM3 (4.0-11.0)
[2017-09-07] MEDS: GENTAMICIN INJ 275 MG in SODIUM CHLORIDE 0.9% INJ 100 ML IV SCH (11:01)
[2017-09-07] MEDS: IBUPROFEN 600 MG TAB PO PRN (11:17)
[2017-09-07] MEDS: oxyCODONE/ACETAMINOPHEN 5 MG/325 MG TAB PO PRN (11:17)
[2017-09-07] MEDS: LACTATED RINGER'S 1000 ML INJ 1,000 ML IV SCH (11:48)
--- NOTE | 2017-09-07 12:07 | HHI.DCPOC ---
Discharge Care Plan Diagnosis: (1) with septicemia (2) Placenta previa Report Symptoms to Your Doctor -Temperature above 100.5 degrees -Redness, of incision or excessive or foul smelling drainage -Unusual pain or calf pain -Increased vaginal bleeding -Painful or difficulty urinating -Feelings of extreme sadness or anxiety after 2 weeks Goals to Promote Your Health * To prevent worsening of your condition and complications * To maintain your health at the optimal level Directions to Meet Your Goals Take your medications as prescribed Follow your dietary instruction Follow activity as directed Ensure plenty of rest for recovery Drink fluids for hydration Keep your appointments as scheduled Take your immunizations and boosters as scheduled If your symptoms worsen call your PCP, if no PCP go to Urgent Care Center or Emergency Room Smoking is Dangerous to Your Health. Avoid second hand smoke Call the 24-hour crisis hotline for domestic abuse at Daniel Stauffer MD R1 Sep 07, 2017 12:07
== END 2017-09-07 12:46 | disposition home or self-care (01) | DRG 779 ==
LOC: HOBED 03:48 → H2EA 04:52
PROVIDERS: ADMIT Obstetrics & Gynecology; ATTEND Obstetrics & Gynecology
PROC: 10E0XZZ Delivery of Products of Conception, External Approach (ICD-10-PCS; principal; 2017-09-06)
DX: O03.87 Sepsis following complete or unspecified spontaneous abortion (principal); O44.12 Complete placenta previa with hemorrhage, second trimester; O41.02X0 Oligohydramnios, second trimester, not applicable or unspecified; O32.1XX0 Maternal care for breech presentation, not applicable or unspecified; O42.912 Preterm premature rupture of membranes, unspecified as to length of time between rupture and onset of labor, second trimester; O43.892 Other placental disorders, second trimester; Z88.0 Allergy status to penicillin
CPT/HCPCS: 76815; 80307; 81001; 82565; 85025; 85610; 85730; 86850; 86900; 86901; 86920; 87040; 87070; 88300; 88305; G0481; J1580; J2405; J2590; J3010; J7120